=== PATIENT | male | born 1950 | race Caucasian/White ===

== ENCOUNTER 2024-05-23 21:03 | Inpatient (IN) | payer MEDICARE, MEDICAID ==
[~2024-05-23] VITALS: Ht 182.9 cm; Wt 57.2 kg
[2024-05-23 21:34] LABS: BASOPHILS % (AUTO) 0.9 % (0-1); EOSINOPHILS % (AUTO) 0.7 % (0-6); HEMATOCRIT 31.3 % (42.0-52.0); HEMOGLOBIN 10.5 g/dl (14.0-17.9); LYMPHOCYTES # (AUTO) 0.3 X10'3 (1.1-4.8); LYMPHOCYTES % (AUTO) 7.8 % (21-51); MEAN CORPUSCULAR HEMOGLOBIN 33.7 PG (27.0-31.0); MEAN CORPUSCULAR HGB CONC 33.4 g/dL (33.0-36.5); MEAN CORPUSCULAR VOLUME 100.8 FL (78-98); MEAN PLATELET VOLUME 7.3 FL (7.4-10.4); MONOCYTES # (AUTO) 0.3 X10'3 (0-0.9); MONOCYTES % (AUTO) 7.9 % (2-12); NEUTROPHILS # (AUTO) 3.4 X10'3 (1.8-7.7); NEUTROPHILS % (AUTO) 82.7 % (42-75); PLATELET COUNT 107 X10'3 (140-440); RED BLOOD COUNT 3.11 X10'6 (4.70-6.10); RED CELL DISTRIBUTION WIDTH 19.4 % (11.5-14.5); WHITE BLOOD COUNT 4.1 X10'3 (4.5-11.0)
[2024-05-23 21:47] LABS: ALANINE AMINOTRANSFERASE 19 U/L (12-78); ALBUMIN 3.1 G/DL (3.4-5.0); ALBUMIN/GLOBULIN RATIO 0.8 (1.1-1.5); ALKALINE PHOSPHATASE 82 IU/L (46-116); ANION GAP 8 (8-16); BLOOD UREA NITROGEN 9 MG/DL (7-18); BUN/CREATININE RATIO 12.9 (10.0-20.0); CALCIUM 8.3 MG/DL (8.5-10.1); CHLORIDE 100 MMOL/L (99-107); GLUCOSE 116 MG/DL (70-104); SODIUM 134 MMOL/L (135-145); TOTAL CARBON DIOXIDE 26.3 MMOL/L (24-32); TOTAL PROTEIN 6.9 G/DL (6.4-8.2); eCRCL 74 ML/MIN; eGFR > 90 ML/MIN
[2024-05-23 21:56] LABS: ANISOCYTOSIS 1+; PRO BRAIN NATRIURETIC PEPTIDE 960 PG/ML (0-125)
[2024-05-23 22:02] LABS: ASPARTATE AMINO TRANSFERASE 86 U/L (10-37); POTASSIUM 4.3 MMOL/L (3.5-5.1)
[2024-05-24] VITALS (12 sets, daily range): BP systolic 80–121; BP diastolic 53–69; PULSE 20–125; RESP 14–71; TEMP 98.1–98.7; O2SAT 94–100
[2024-05-24] MEDS: azithromycin/NS 500mg/250ml 250 ML IV ONE (00:17)
[2024-05-24] MEDS: CefTRIAXone/D5W-Rocephin 1gm 50 ML IV ONE (00:17)
[2024-05-24] MEDS ORDERED: iohexol 350MG/ML 100ml bottle IV ONE (00:43)
[2024-05-24] MEDS ORDERED: potassium Cl 20 mEq SR tablet PO PRN ×2 (00:55)
[2024-05-24] MEDS ORDERED: potassium Cl 40MEQ/1/2NS 520ml 520 ML IV PRN (00:55)
[2024-05-24] MEDS ORDERED: mag hydrox/Alum hydrox/simeth 30ml oral suspension PO PRN (00:55)
[2024-05-24] MEDS ORDERED: acetaminophen 325mg tablet PO PRN (00:55)
[2024-05-24] MEDS ORDERED: magnesium sulf-water 2g/50mL 50 ML IV PRN (00:55)
[2024-05-24] MEDS ORDERED: morphine 2 MG/ML inj. syringe IV PRN (00:55)
[2024-05-24] MEDS ORDERED: magnesium sulf-water 4G/100mL 100 ML IV PRN (00:55)
[2024-05-24] MEDS ORDERED: magnesium Cl slow-release 64mg tablet PO PRN (00:55)
[2024-05-24] MEDS: furosemide 10 MG/1 ML 10ml inj IV ONE (01:27)
[2024-05-24] MEDS ORDERED: GABA-535 PO (01:35)
[2024-05-24 02:24] LABS: BASOPHILS % (AUTO) 0.7 % (0-1); EOSINOPHILS % (AUTO) 0.6 % (0-6); HEMATOCRIT 31.5 % (42.0-52.0); HEMOGLOBIN 10.5 g/dl (14.0-17.9); LYMPHOCYTES # (AUTO) 0.3 X10'3 (1.1-4.8); LYMPHOCYTES % (AUTO) 6.6 % (21-51); MEAN CORPUSCULAR HEMOGLOBIN 33.6 PG (27.0-31.0); MEAN CORPUSCULAR HGB CONC 33.3 g/dL (33.0-36.5); MEAN PLATELET VOLUME 6.6 FL (7.4-10.4); MONOCYTES # (AUTO) 0.3 X10'3 (0-0.9); MONOCYTES % (AUTO) 8.2 % (2-12); NEUTROPHILS # (AUTO) 3.4 X10'3 (1.8-7.7); NEUTROPHILS % (AUTO) 83.9 % (42-75); PLATELET COUNT 92 X10'3 (140-440); RED BLOOD COUNT 3.12 X10'6 (4.70-6.10); RED CELL DISTRIBUTION WIDTH 19.4 % (11.5-14.5); WHITE BLOOD COUNT 4.1 X10'3 (4.5-11.0)
[2024-05-24 02:33] LABS: BILIRUBIN,URINE NEGATIVE (Neg); CLARITY,URINE CLEAR (Clear); COLOR,URINE YELLOW (Yellow); GLUCOSE, URINE NEGATIVE (Neg); KETONES,URINE NEGATIVE (Neg); LEUKOCYTE ESTERASE ,URINE NEGATIVE (Neg); NITRITES, URINE NEGATIVE (Neg); OCCULT BLOOD,URINE NEGATIVE (Neg); PH,URINE 6.5 (4.8-8.0); PROTEIN,URINE NEGATIVE (Neg)
[2024-05-24 02:33] LABS: MAGNESIUM 1.9 MG/DL (1.5-2.4)
[2024-05-24 02:35] LABS: UA COLLECTION TYPE CLN CATCH MIDSTREAM
[2024-05-24] MEDS: pantoprazole 40 MG vial IV ONE (02:40)
[2024-05-24] MEDS: ondansetron/PF 4mg/2ml inj IV PRN (02:42)
[2024-05-24] MEDS: ipratropium/albuterol 3ml nebule NEB SCH (03:00)
[2024-05-24 03:19] LABS: ABSOLUTE RETICS # 70300 /CUMM (23000-93000); RETICULOCYTE % (AUTO) 2.3 % (0.5-1.5)
[2024-05-24 03:43] LABS: ETHANOL < 10 MG/DL (<10); FERRITIN 537 NG/ML (26-388)
[2024-05-24 03:45] LABS: % IRON SATURATION 21 % (11-46); IRON 41 UG/DL (53-167); TOTAL IRON BINDING CAPACITY 197 UG/DL (259-388)
[2024-05-24] MEDS: folic acid 1mg/0.2ml inj IV ONE (04:50)
[2024-05-24] MEDS: morphine 2 MG/ML inj. syringe IV PRN (05:11)
[2024-05-24] MEDS: K and/or MAG REPLACEMENT MC SCH (07:27)
[2024-05-24] MEDS: cyanocobalamin 500mcg tablet PO SCH (07:37)
[2024-05-24] MEDS: gabapentin 400mg capsule PO SCH (07:37)
[2024-05-24] MEDS: docusate sod 100mg capsule PO SCH (07:39)
[2024-05-24] MEDS: piperacillin/tazo 4.5gm/100ml 100 ML IV SCH (07:39)
[2024-05-24] MEDS ORDERED: heparin, porcine 5000 units/ml vial SQ SCH (08:00)
[2024-05-24] MEDS: lactose-reduced food (Ensure Enlive) - 237ml bottle PO SCH (08:00)
[2024-05-24 11:47] LABS: GLUCOSE,BODY FLUID 104 MG/DL; LDH,BODY FLUID 104 U/L; TOTAL PROTEIN,BODY FLUID 4.3 G/DL
[2024-05-24 11:51] LABS: BFSOURCE RIGHT PLEURAL FLD; PLEURAL FLUID PH 7.454 (7.63-7.65)
[2024-05-24 12:01] LABS: BFAPPEAR HAZY; BFSOURCE RIGHT PLEURAL FLD
[2024-05-24 12:02] LABS: BF RBC COUNT 3080 /CU MM; BF WBC COUNT 205 /CU MM (0-1000); BFCOLOR YELLOW; BFVOLUME 40 ML
[2024-05-24 12:03] LABS: LYMPHOCYTES,BODY FLUID 58 %; MONOCYTES,BODY FLUID 26 %; NEUTROPHILS,BODY FLUID 16 %
[2024-05-24 12:04] LABS: BF MESOTHELIAL CELLS FEW
[2024-05-24] MEDS: normal saline 1000ml 1,000 ML IV SCH (21:56)
[2024-05-25] VITALS (27 sets, daily range): BP systolic 80–109; BP diastolic 49–61; PULSE 82–109; RESP 14–20; TEMP 97.6–98.6; O2SAT 94–100
[2024-05-25] MEDS: Melatonin 3mg tablet PO SCH (00:46)
[2024-05-25 07:09] LABS: BASOPHILS % (AUTO) 0.8 % (0-1); EOSINOPHILS % (AUTO) 0.4 % (0-6); HEMATOCRIT 23.1 % (42.0-52.0); HEMOGLOBIN 7.8 g/dl (14.0-17.9); LYMPHOCYTES # (AUTO) 0.2 X10'3 (1.1-4.8); MEAN CORPUSCULAR HEMOGLOBIN 34.2 PG (27.0-31.0); MEAN CORPUSCULAR HGB CONC 33.9 g/dL (33.0-36.5); MEAN CORPUSCULAR VOLUME 100.7 FL (78-98); MONOCYTES # (AUTO) 0.2 X10'3 (0-0.9); MONOCYTES % (AUTO) 8.7 % (2-12); NEUTROPHILS % (AUTO) 82.1 % (42-75); PLATELET COUNT 60 X10'3 (140-440); RED BLOOD COUNT 2.29 X10'6 (4.70-6.10); RED CELL DISTRIBUTION WIDTH 19.4 % (11.5-14.5); WHITE BLOOD COUNT 2.5 X10'3 (4.5-11.0)
[2024-05-25 07:13] LABS: INR 1.1 INR; PROTHROMBIN TIME 11.4 SECONDS (9.0-12.0)
[2024-05-25 07:33] LABS: ALANINE AMINOTRANSFERASE 17 U/L (12-78); ALBUMIN 2.6 G/DL (3.4-5.0); ALBUMIN/GLOBULIN RATIO 0.8 (1.1-1.5); ALKALINE PHOSPHATASE 60 IU/L (46-116); ANION GAP 6 (8-16); ASPARTATE AMINO TRANSFERASE 58 U/L (10-37); BILIRUBIN,TOTAL 0.5 MG/DL (0.1-1.0); BLOOD UREA NITROGEN 13 MG/DL (7-18); CALCIUM 7.8 MG/DL (8.5-10.1); CHLORIDE 102 MMOL/L (99-107); CHOL/HDL RATIO 4.3 (0.00-4.99); CHOLESTEROL 168 MG/DL (0-200); CREATININE 0.93 MG/DL (0.60-1.10); GLUCOSE 117 MG/DL (70-104); HDL CHOLESTEROL 39 MG/DL (35-60); LDL CHOLESTEROL 113 MG/DL (50-100); MAGNESIUM 1.8 MG/DL (1.5-2.4); POTASSIUM 3.9 MMOL/L (3.5-5.1); SODIUM 136 MMOL/L (135-145); TOTAL CARBON DIOXIDE 27.9 MMOL/L (24-32); TOTAL PROTEIN 5.8 G/DL (6.4-8.2); TRIGLYCERIDES 62 MG/DL (20-135); eCRCL 56 ML/MIN; eGFR 80 ML/MIN
[2024-05-25 08:37] LABS: HEMOGLOBIN 7.8 g/dl (14.0-17.9); WHITE BLOOD COUNT 2.3 X10'3 (4.5-11.0)
[2024-05-25 08:40] LABS: HEMATOCRIT 23.2 % (42.0-52.0); MEAN CORPUSCULAR HEMOGLOBIN 33.5 PG (27.0-31.0); MEAN CORPUSCULAR HGB CONC 33.5 g/dL (33.0-36.5); MEAN CORPUSCULAR VOLUME 100.2 FL (78-98); MEAN PLATELET VOLUME 6.5 FL (7.4-10.4); PLATELET COUNT 52 X10'3 (140-440); RED BLOOD COUNT 2.31 X10'6 (4.70-6.10); RED CELL DISTRIBUTION WIDTH 19.4 % (11.5-14.5)
[2024-05-25 08:55] LABS: TOTAL CELLS COUNTED 100
[2024-05-25 08:56] LABS: ANISOCYTOSIS 2+; PLATELET ESTIMATE DECREASED
[2024-05-25] MEDS ORDERED: LIDOcaine 2% Viscous 15ml cup ONE (16:03)
[2024-05-25] MEDS ORDERED: fentaNYL/PF 50MCG/1 ML 2ML syringe ONE (16:28)
[2024-05-25] MEDS ORDERED: MIDAZolam 1 MG/ML 5ML VIAL ONE (16:28)
[2024-05-25] MEDS ORDERED: simethicone 40mg/0.6ml oral drops 30ml ONE (16:30)
[2024-05-25] MEDS ORDERED: PSYL0.4C2 PO (16:43)
[2024-05-25] MEDS ORDERED: polyvinyl alcohol eye drops 15ML BOTTLE EACHEYE PRN (16:55)
[2024-05-25] MEDS ORDERED: psyllium seed 5.8 gm packet (sugar-free) PO PRN (18:50)
[2024-05-25] MEDS: magnesium hydroxide 30ml (MOM) UD suspension PO PRN (19:20)
[2024-05-26] VITALS (27 sets, daily range): BP systolic 82–126; BP diastolic 50–74; PULSE 96–118; RESP 14–22; TEMP 97.1–99.3; O2SAT 86–99
[2024-05-26] MEDS: gabapentin 400mg capsule PO SCH (00:08)
[2024-05-26 05:38] LABS: BASOPHILS % (AUTO) 0.8 % (0-1); EOSINOPHILS % (AUTO) 0.7 % (0-6); HEMOGLOBIN 7.7 g/dl (14.0-17.9); LYMPHOCYTES # (AUTO) 0.2 X10'3 (1.1-4.8); LYMPHOCYTES % (AUTO) 6.8 % (21-51); MEAN CORPUSCULAR HEMOGLOBIN 34.1 PG (27.0-31.0); MEAN CORPUSCULAR HGB CONC 33.6 g/dL (33.0-36.5); MEAN CORPUSCULAR VOLUME 101.5 FL (78-98); MONOCYTES # (AUTO) 0.2 X10'3 (0-0.9); MONOCYTES % (AUTO) 8.6 % (2-12); NEUTROPHILS # (AUTO) 1.9 X10'3 (1.8-7.7); NEUTROPHILS % (AUTO) 83.1 % (42-75); PLATELET COUNT 51 X10'3 (140-440); RED BLOOD COUNT 2.26 X10'6 (4.70-6.10); RED CELL DISTRIBUTION WIDTH 18.8 % (11.5-14.5); WHITE BLOOD COUNT 2.3 X10'3 (4.5-11.0)
[2024-05-26 06:03] LABS: ALANINE AMINOTRANSFERASE 17 U/L (12-78); ALBUMIN 2.4 G/DL (3.4-5.0); ALBUMIN/GLOBULIN RATIO 0.8 (1.1-1.5); ALKALINE PHOSPHATASE 55 IU/L (46-116); ANION GAP 7 (8-16); ASPARTATE AMINO TRANSFERASE 58 U/L (10-37); BILIRUBIN,TOTAL 0.6 MG/DL (0.1-1.0); BLOOD UREA NITROGEN 8 MG/DL (7-18); BUN/CREATININE RATIO 11.6 (10.0-20.0); CALCIUM 7.7 MG/DL (8.5-10.1); CHLORIDE 105 MMOL/L (99-107); CREATININE 0.69 MG/DL (0.60-1.10); GLUCOSE 96 MG/DL (70-104); MAGNESIUM 2.1 MG/DL (1.5-2.4); POTASSIUM 3.9 MMOL/L (3.5-5.1); SODIUM 138 MMOL/L (135-145); TOTAL CARBON DIOXIDE 26.3 MMOL/L (24-32); TOTAL PROTEIN 5.5 G/DL (6.4-8.2); eCRCL 73 ML/MIN; eGFR > 90 ML/MIN
[2024-05-26 06:49] LABS: ANISOCYTOSIS 2+; PLATELET ESTIMATE DECREASED; TOTAL CELLS COUNTED 100
[2024-05-26 06:50] LABS: TEAR DROP CELLS FEW
[2024-05-26 06:51] LABS: STOMATOCYTES FEW
[2024-05-26 14:54] LABS: HEMATOCRIT 26.8 % (42.0-52.0); MEAN CORPUSCULAR HEMOGLOBIN 33.4 PG (27.0-31.0); MEAN CORPUSCULAR HGB CONC 33.6 g/dL (33.0-36.5); MEAN CORPUSCULAR VOLUME 99.2 FL (78-98); MEAN PLATELET VOLUME 6.5 FL (7.4-10.4); PLATELET COUNT 60 X10'3 (140-440); RED CELL DISTRIBUTION WIDTH 19.7 % (11.5-14.5); WHITE BLOOD COUNT 3.6 X10'3 (4.5-11.0)
[2024-05-27] VITALS (15 sets, daily range): BP systolic 96–108; BP diastolic 63–70; PULSE 88–103; RESP 14–18; TEMP 97.6–98.5; O2SAT 92–98
[2024-05-27 05:39] LABS: EOSINOPHILS % (AUTO) 1.3 % (0-6); HEMATOCRIT 31.7 % (42.0-52.0); HEMOGLOBIN 10.7 g/dl (14.0-17.9); LYMPHOCYTES # (AUTO) 0.2 X10'3 (1.1-4.8); MEAN CORPUSCULAR HGB CONC 33.7 g/dL (33.0-36.5); MEAN PLATELET VOLUME 7.4 FL (7.4-10.4); MONOCYTES # (AUTO) 0.2 X10'3 (0-0.9)
[2024-05-27 05:41] LABS: BASOPHILS % (AUTO) 0.8 % (0-1); LYMPHOCYTES % (AUTO) 6.6 % (21-51); MEAN CORPUSCULAR HEMOGLOBIN 32.3 PG (27.0-31.0); MEAN CORPUSCULAR VOLUME 95.8 FL (78-98); MONOCYTES % (AUTO) 6.3 % (2-12); NEUTROPHILS # (AUTO) 2.7 X10'3 (1.8-7.7); PLATELET COUNT 56 X10'3 (140-440); WHITE BLOOD COUNT 3.2 X10'3 (4.5-11.0)
[2024-05-27 05:58] LABS: ALANINE AMINOTRANSFERASE 13 U/L (12-78); ALBUMIN 2.4 G/DL (3.4-5.0); ALBUMIN/GLOBULIN RATIO 0.7 (1.1-1.5); ALKALINE PHOSPHATASE 63 IU/L (46-116); ANION GAP 7 (8-16); ASPARTATE AMINO TRANSFERASE 54 U/L (10-37); BLOOD UREA NITROGEN 6 MG/DL (7-18); BUN/CREATININE RATIO 9.5 (10.0-20.0); CHLORIDE 105 MMOL/L (99-107); CREATININE 0.63 MG/DL (0.60-1.10); GLUCOSE 102 MG/DL (70-104); POTASSIUM 4.1 MMOL/L (3.5-5.1); SODIUM 136 MMOL/L (135-145); TOTAL CARBON DIOXIDE 24.3 MMOL/L (24-32); TOTAL PROTEIN 5.9 G/DL (6.4-8.2); eCRCL 80 ML/MIN; eGFR > 90 ML/MIN
[2024-05-27 13:39] LABS: OCCULT BLOOD STOOL POSITIVE (Neg)
[2024-05-28] VITALS (14 sets, daily range): BP systolic 109–120; BP diastolic 46–89; PULSE 74–96; RESP 16–24; TEMP 97.6–98; O2SAT 94–98
[2024-05-28 05:40] LABS: EOSINOPHILS # (AUTO) 0.1 X10'3 (0-0.9); HEMOGLOBIN 10.9 g/dl (14.0-17.9); LYMPHOCYTES # (AUTO) 0.2 X10'3 (1.1-4.8); MONOCYTES # (AUTO) 0.3 X10'3 (0-0.9)
[2024-05-28 05:42] LABS: BASOPHILS % (AUTO) 0.8 % (0-1); EOSINOPHILS % (AUTO) 1.5 % (0-6); HEMATOCRIT 32.1 % (42.0-52.0); LYMPHOCYTES % (AUTO) 5.3 % (21-51); MEAN CORPUSCULAR HEMOGLOBIN 32.7 PG (27.0-31.0); MEAN CORPUSCULAR HGB CONC 33.8 g/dL (33.0-36.5); MEAN CORPUSCULAR VOLUME 96.9 FL (78-98); MEAN PLATELET VOLUME 7.3 FL (7.4-10.4); MONOCYTES % (AUTO) 6.7 % (2-12); NEUTROPHILS # (AUTO) 3.6 X10'3 (1.8-7.7); NEUTROPHILS % (AUTO) 85.7 % (42-75); PLATELET COUNT 60 X10'3 (140-440); RED BLOOD COUNT 3.32 X10'6 (4.70-6.10); RED CELL DISTRIBUTION WIDTH 20.2 % (11.5-14.5); WHITE BLOOD COUNT 4.2 X10'3 (4.5-11.0)
[2024-05-28 06:14] LABS: ALANINE AMINOTRANSFERASE 13 U/L (12-78); ALBUMIN 2.3 G/DL (3.4-5.0); ALBUMIN/GLOBULIN RATIO 0.7 (1.1-1.5); ALKALINE PHOSPHATASE 65 IU/L (46-116); ANION GAP 7 (8-16); ASPARTATE AMINO TRANSFERASE 49 U/L (10-37); BILIRUBIN,TOTAL 0.8 MG/DL (0.1-1.0); BLOOD UREA NITROGEN 6 MG/DL (7-18); BUN/CREATININE RATIO 8.7 (10.0-20.0); CHLORIDE 105 MMOL/L (99-107); CREATININE 0.69 MG/DL (0.60-1.10); GLUCOSE 83 MG/DL (70-104); MAGNESIUM 1.9 MG/DL (1.5-2.4); POTASSIUM 4.5 MMOL/L (3.5-5.1); SODIUM 137 MMOL/L (135-145); TOTAL CARBON DIOXIDE 25.4 MMOL/L (24-32); TOTAL PROTEIN 5.7 G/DL (6.4-8.2); eCRCL 74 ML/MIN; eGFR > 90 ML/MIN
[2024-05-29] VITALS (33 sets, daily range): BP systolic 115–145; BP diastolic 69–97; PULSE 84–119; RESP 14–24; TEMP 97.5–98.1; O2SAT 94–100
[2024-05-29 06:52] LABS: EOSINOPHILS # (AUTO) 0.1 X10'3 (0-0.9); EOSINOPHILS % (AUTO) 1.2 % (0-6); HEMOGLOBIN 10.8 g/dl (14.0-17.9); LYMPHOCYTES # (AUTO) 0.2 X10'3 (1.1-4.8); MEAN CORPUSCULAR HEMOGLOBIN 32.3 PG (27.0-31.0); NEUTROPHILS # (AUTO) 3.8 X10'3 (1.8-7.7); RED BLOOD COUNT 3.34 X10'6 (4.70-6.10)
[2024-05-29 06:54] LABS: BASOPHILS % (AUTO) 0.5 % (0-1); HEMATOCRIT 32.3 % (42.0-52.0); LYMPHOCYTES % (AUTO) 3.5 % (21-51); MEAN CORPUSCULAR HGB CONC 33.4 g/dL (33.0-36.5); MEAN CORPUSCULAR VOLUME 96.6 FL (78-98); MEAN PLATELET VOLUME 7.3 FL (7.4-10.4); MONOCYTES # (AUTO) 0.3 X10'3 (0-0.9); MONOCYTES % (AUTO) 6.5 % (2-12); NEUTROPHILS % (AUTO) 88.3 % (42-75); PLATELET COUNT 55 X10'3 (140-440); RED CELL DISTRIBUTION WIDTH 19.5 % (11.5-14.5); WHITE BLOOD COUNT 4.3 X10'3 (4.5-11.0)
[2024-05-29 07:24] LABS: ALANINE AMINOTRANSFERASE 12 U/L (12-78); ALBUMIN 2.4 G/DL (3.4-5.0); ALBUMIN/GLOBULIN RATIO 0.7 (1.1-1.5); ALKALINE PHOSPHATASE 65 IU/L (46-116); ANION GAP 7 (8-16); ASPARTATE AMINO TRANSFERASE 54 U/L (10-37); BILIRUBIN,TOTAL 0.8 MG/DL (0.1-1.0); BLOOD UREA NITROGEN 6 MG/DL (7-18); BUN/CREATININE RATIO 8.1 (10.0-20.0); CALCIUM 7.9 MG/DL (8.5-10.1); CHLORIDE 104 MMOL/L (99-107); CREATININE 0.74 MG/DL (0.60-1.10); GLUCOSE 81 MG/DL (70-104); POTASSIUM 4.1 MMOL/L (3.5-5.1); SODIUM 136 MMOL/L (135-145); TOTAL CARBON DIOXIDE 24.7 MMOL/L (24-32); TOTAL PROTEIN 5.9 G/DL (6.4-8.2); eCRCL 72 ML/MIN; eGFR > 90 ML/MIN
[2024-05-29] MEDS ORDERED: LIDOcaine/PRILOcaine 5gm cream TP PRN (11:35)
[2024-05-29] MEDS ORDERED: BUPIVAcaine 2.5mg/ml inj 50ml vial (contains preservative) ONE (15:37)
[2024-05-29] MEDS ORDERED: morphine 2 MG/ML inj. syringe IV PRN (16:00)
[2024-05-29] MEDS ORDERED: HYDROmorphone/PF 0.2 MG/ML SYRINGE IV PRN (16:00)
[2024-05-29] MEDS ORDERED: labetalol 20mg/4ml (5mg/ml) syringe IV PRN (16:00)
[2024-05-29] MEDS: ringers solution, lacted 1,000 ML IV SCH (16:00)
[2024-05-29] MEDS ORDERED: morphine 4 MG/ML inj SYRINge IV PRN (16:00)
[2024-05-29] MEDS ORDERED: ondansetron/PF 4mg/2ml inj IV PRN (16:00)
[2024-05-29] MEDS ORDERED: fentaNYL/PF 50MCG/1 ML 2ML syringe ONE (16:02)
[2024-05-29] MEDS ORDERED: midazolam 1 mg/ML 2ml injection ONE (16:02)
[2024-05-29] MEDS ORDERED: sevoflurane 250ml liquid IH ONE (16:02)
[2024-05-29] MEDS ORDERED: propofol inj 20 ML IV ONE (16:02)
[2024-05-29] MEDS ORDERED: rocuronium 10mg/ml inj IV ONE (16:02)
[2024-05-29] MEDS ORDERED: albumin (Human) 5% 250ml 250 ML IV ONE (16:45)
[2024-05-29] MEDS ORDERED: dexamethasone sod phosphate 4mg/ml inj. ONE (16:48)
[2024-05-29] MEDS: BUPIVAcaine/PF 2.5 mg/ml (0.25%) 30ml vial IJ ONE (17:08)
[2024-05-29] MEDS ORDERED: ondansetron/PF 4mg/2ml inj ONE (17:30)
[2024-05-29] MEDS ORDERED: sugammadex 200mg/2ml injection IV ONE (17:31)
[2024-05-29] MEDS ORDERED: HYDROcodone/acetaminophen 10/325mg tab PO PRN (17:50)
[2024-05-29] MEDS: acetaminophen 1,000mg/100ml IV 100 ML IV PRN (18:07)
[2024-05-29] MEDS: HYDROmorphone/PF 0.2 MG/ML SYRINGE IV PRN (22:11)
[2024-05-30] VITALS (17 sets, daily range): BP systolic 116–155; BP diastolic 78–97; PULSE 94–120; RESP 13–18; TEMP 97.6–98.4; O2SAT 92–96
[2024-05-30] MEDS: HYDROmorphone inj. 0.5 MG/0.5 ML DISP.SYRIN IV ONE (00:59)
[2024-05-30] MEDS: HYDROmorphone 1 mg/ml syringe IV PRN (09:20)
[2024-05-31] VITALS (12 sets, daily range): BP systolic 105–123; BP diastolic 68–80; PULSE 91–138; RESP 13–18; TEMP 97.6–98.1; O2SAT 95–99
[2024-05-31 06:53] LABS: BASOPHILS % (AUTO) 0.3 % (0-1); HEMATOCRIT 31.3 % (42.0-52.0); HEMOGLOBIN 10.5 g/dl (14.0-17.9); LYMPHOCYTES # (AUTO) 0.2 X10'3 (1.1-4.8); LYMPHOCYTES % (AUTO) 4.8 % (21-51); MEAN CORPUSCULAR HEMOGLOBIN 32.8 PG (27.0-31.0); MEAN CORPUSCULAR HGB CONC 33.6 g/dL (33.0-36.5); MEAN CORPUSCULAR VOLUME 97.5 FL (78-98); MEAN PLATELET VOLUME 7.1 FL (7.4-10.4); MONOCYTES # (AUTO) 0.3 X10'3 (0-0.9); MONOCYTES % (AUTO) 6.7 % (2-12); NEUTROPHILS # (AUTO) 3.9 X10'3 (1.8-7.7); NEUTROPHILS % (AUTO) 87.2 % (42-75); PLATELET COUNT 57 X10'3 (140-440); RED BLOOD COUNT 3.21 X10'6 (4.70-6.10); RED CELL DISTRIBUTION WIDTH 19.9 % (11.5-14.5); WHITE BLOOD COUNT 4.5 X10'3 (4.5-11.0)
[2024-05-31 07:46] LABS: ALANINE AMINOTRANSFERASE 12 U/L (12-78); ALBUMIN 2.3 G/DL (3.4-5.0); ALBUMIN/GLOBULIN RATIO 0.7 (1.1-1.5); ALKALINE PHOSPHATASE 58 IU/L (46-116); ANION GAP 6 (8-16); ASPARTATE AMINO TRANSFERASE 49 U/L (10-37); BILIRUBIN,TOTAL 0.5 MG/DL (0.1-1.0); BLOOD UREA NITROGEN 9 MG/DL (7-18); BUN/CREATININE RATIO 14.8 (10.0-20.0); CHLORIDE 104 MMOL/L (99-107); CREATININE 0.61 MG/DL (0.60-1.10); GLUCOSE 110 MG/DL (70-104); POTASSIUM 3.8 MMOL/L (3.5-5.1); SODIUM 135 MMOL/L (135-145); TOTAL CARBON DIOXIDE 25.3 MMOL/L (24-32); TOTAL PROTEIN 5.7 G/DL (6.4-8.2); eCRCL 86 ML/MIN; eGFR > 90 ML/MIN
[2024-05-31] MEDS ORDERED: thiamine 100mg tablet PO SCH (08:00)
[2024-05-31] MEDS ORDERED: acetaminophen 325mg/10.15ml oral unit dose solution PO PRN (09:26)
[2024-05-31] MEDS ORDERED: mag hydrox/Alum hydrox/simeth 30ml oral suspension PEG PRN (09:28)
[2024-05-31] MEDS ORDERED: psyllium seed 5.8 gm packet (sugar-free) PEG PRN (09:29)
[2024-05-31] MEDS ORDERED: acetaminophen 325mg/10.15ml oral unit dose solution PEG PRN (09:29)
[2024-05-31] MEDS ORDERED: magnesium hydroxide 30ml (MOM) UD suspension PEG PRN (09:29)
[2024-05-31] MEDS: bisacodyl 10mg suppository rectal RC STA (10:56)
[2024-05-31] MEDS ORDERED: bisacodyl 10mg suppository rectal RC PRN (11:00)
[2024-05-31] MEDS ORDERED: ondansetron 4mg rapidly disintigrating tab PO PRN (11:30)
[2024-05-31] MEDS: docusate sodium 100mg/10ml UD cup PEG ONE (11:44)
[2024-05-31] MEDS: cyanocobalamin 500mcg tablet PEG ONE (11:45)
[2024-05-31] MEDS: thiamine 100mg tablet PEG ONE (11:46)
[2024-05-31] MEDS: magnesium hydroxide 30ml (MOM) UD suspension GT PRN (11:52)
[2024-05-31] MEDS: docusate sodium 100mg/10ml UD cup PEG SCH (20:00)
[2024-05-31] MEDS: GABAPENTIN 300 MG/6 ML oral SOLUTION cup PEG SCH (21:00)
[2024-05-31] MEDS: psyllium seed 5.8 gm packet (sugar-free) PEG SCH (21:44)
[2024-05-31] MEDS: Melatonin 3mg tablet PEG SCH (21:44)
[2024-06-01] VITALS (15 sets, daily range): BP systolic 98–124; BP diastolic 60–79; PULSE 63–101; RESP 16–20; TEMP 97.6–98.7; O2SAT 93–97
[2024-06-01] MEDS: ipratropium/albuterol 3ml nebule NEB PRN (03:47)
[2024-06-01 06:37] LABS: BASOPHILS % (AUTO) 0.4 % (0-1); EOSINOPHILS # (AUTO) 0.1 X10'3 (0-0.9); HEMATOCRIT 31.9 % (42.0-52.0); HEMOGLOBIN 10.7 g/dl (14.0-17.9); LYMPHOCYTES # (AUTO) 0.3 X10'3 (1.1-4.8); LYMPHOCYTES % (AUTO) 5.2 % (21-51); MEAN CORPUSCULAR HEMOGLOBIN 32.6 PG (27.0-31.0); MEAN CORPUSCULAR HGB CONC 33.7 g/dL (33.0-36.5); MEAN CORPUSCULAR VOLUME 96.9 FL (78-98); MEAN PLATELET VOLUME 7.3 FL (7.4-10.4); MONOCYTES # (AUTO) 0.4 X10'3 (0-0.9); MONOCYTES % (AUTO) 7.4 % (2-12); NEUTROPHILS # (AUTO) 4.4 X10'3 (1.8-7.7); PLATELET COUNT 68 X10'3 (140-440); RED BLOOD COUNT 3.29 X10'6 (4.70-6.10); RED CELL DISTRIBUTION WIDTH 19.7 % (11.5-14.5); WHITE BLOOD COUNT 5.2 X10'3 (4.5-11.0)
[2024-06-01 07:15] LABS: ALANINE AMINOTRANSFERASE 16 U/L (12-78); ALBUMIN 2.1 G/DL (3.4-5.0); ALBUMIN/GLOBULIN RATIO 0.6 (1.1-1.5); ALKALINE PHOSPHATASE 71 IU/L (46-116); ANION GAP 5 (8-16); ASPARTATE AMINO TRANSFERASE 48 U/L (10-37); BILIRUBIN,TOTAL 0.5 MG/DL (0.1-1.0); BLOOD UREA NITROGEN 17 MG/DL (7-18); BUN/CREATININE RATIO 23.9 (10.0-20.0); CALCIUM 7.9 MG/DL (8.5-10.1); CHLORIDE 103 MMOL/L (99-107); CREATININE 0.71 MG/DL (0.60-1.10); GLUCOSE 117 MG/DL (70-104); POTASSIUM 4.4 MMOL/L (3.5-5.1); PREALBUMIN 12.6 MG/DL (19-36); SODIUM 136 MMOL/L (135-145); TOTAL CARBON DIOXIDE 28.2 MMOL/L (24-32); TOTAL PROTEIN 5.7 G/DL (6.4-8.2); eCRCL 74 ML/MIN; eGFR > 90 ML/MIN
[2024-06-01] MEDS: cyanocobalamin 500mcg tablet PEG SCH (08:20)
[2024-06-01] MEDS: thiamine 100mg tablet PEG SCH (08:20)
[2024-06-01] MEDS: HYDROmorphone inj. 0.5 MG/0.5 ML DISP.SYRIN IV PRN (08:33)
[2024-06-01] MEDS ORDERED: acetaminophen 325mg/10.15ml oral unit dose solution GT PRN (13:54)
[2024-06-01] MEDS ORDERED: mag hydrox/Alum hydrox/simeth 30ml oral suspension GT PRN (13:55)
[2024-06-01] MEDS ORDERED: ondansetron 4mg/5ml UD cup GT PRN (14:00)
[2024-06-01] MEDS: docusate sodium 100mg/10ml UD cup GT SCH (20:00)
[2024-06-01] MEDS: Melatonin 3mg tablet GT SCH (20:37)
[2024-06-01] MEDS: GABAPENTIN 300 MG/6 ML oral SOLUTION cup GT SCH (21:00)
[2024-06-02] VITALS (10 sets, daily range): BP systolic 110–125; BP diastolic 63–81; PULSE 81–107; RESP 16–20; TEMP 97.4–98.9; O2SAT 94–100
[2024-06-02 05:55] LABS: BASOPHILS % (AUTO) 0.7 % (0-1); EOSINOPHILS # (AUTO) 0.1 X10'3 (0-0.9); EOSINOPHILS % (AUTO) 2.2 % (0-6); HEMATOCRIT 34.4 % (42.0-52.0); HEMOGLOBIN 11.4 g/dl (14.0-17.9); LYMPHOCYTES # (AUTO) 0.5 X10'3 (1.1-4.8); LYMPHOCYTES % (AUTO) 9.4 % (21-51); MEAN CORPUSCULAR HEMOGLOBIN 32.2 PG (27.0-31.0); MEAN CORPUSCULAR HGB CONC 33.1 g/dL (33.0-36.5); MEAN CORPUSCULAR VOLUME 97.5 FL (78-98); MEAN PLATELET VOLUME 7.3 FL (7.4-10.4); MONOCYTES # (AUTO) 0.4 X10'3 (0-0.9); MONOCYTES % (AUTO) 6.3 % (2-12); NEUTROPHILS # (AUTO) 4.5 X10'3 (1.8-7.7); NEUTROPHILS % (AUTO) 81.4 % (42-75); PLATELET COUNT 95 X10'3 (140-440); RED BLOOD COUNT 3.52 X10'6 (4.70-6.10); RED CELL DISTRIBUTION WIDTH 19.9 % (11.5-14.5); WHITE BLOOD COUNT 5.6 X10'3 (4.5-11.0)
[2024-06-02 06:18] LABS: ALANINE AMINOTRANSFERASE 15 U/L (12-78); ALBUMIN 2.2 G/DL (3.4-5.0); ALBUMIN/GLOBULIN RATIO 0.6 (1.1-1.5); ALKALINE PHOSPHATASE 72 IU/L (46-116); ANION GAP 5 (8-16); ASPARTATE AMINO TRANSFERASE 53 U/L (10-37); BILIRUBIN,TOTAL 0.5 MG/DL (0.1-1.0); BLOOD UREA NITROGEN 19 MG/DL (7-18); BUN/CREATININE RATIO 32.8 (10.0-20.0); CALCIUM 8.3 MG/DL (8.5-10.1); CHLORIDE 102 MMOL/L (99-107); CREATININE 0.58 MG/DL (0.60-1.10); GLUCOSE 87 MG/DL (70-104); POTASSIUM 4.4 MMOL/L (3.5-5.1); SODIUM 135 MMOL/L (135-145); TOTAL CARBON DIOXIDE 28.5 MMOL/L (24-32); TOTAL PROTEIN 5.6 G/DL (6.4-8.2); eCRCL 91 ML/MIN; eGFR > 90 ML/MIN
[2024-06-02 06:28] LABS: ANISOCYTOSIS 2+; ELLIPTOCYTES FEW; PLATELET ESTIMATE DECREASED
[2024-06-03] VITALS (7 sets, daily range): BP systolic 101–121; BP diastolic 60–70; PULSE 85–98; RESP 16–20; TEMP 97.2–98; O2SAT 91–99
[2024-06-03 06:15] LABS: ALANINE AMINOTRANSFERASE 21 U/L (12-78); ALBUMIN 2.1 G/DL (3.4-5.0); ALBUMIN/GLOBULIN RATIO 0.7 (1.1-1.5); ALKALINE PHOSPHATASE 78 IU/L (46-116); ANION GAP 4 (8-16); ASPARTATE AMINO TRANSFERASE 54 U/L (10-37); BILIRUBIN,TOTAL 0.4 MG/DL (0.1-1.0); BLOOD UREA NITROGEN 21 MG/DL (7-18); BUN/CREATININE RATIO 36.8 (10.0-20.0); CALCIUM 8.2 MG/DL (8.5-10.1); CHLORIDE 104 MMOL/L (99-107); CREATININE 0.57 MG/DL (0.60-1.10); GLUCOSE 83 MG/DL (70-104); POTASSIUM 4.4 MMOL/L (3.5-5.1); SODIUM 136 MMOL/L (135-145); TOTAL CARBON DIOXIDE 28.2 MMOL/L (24-32); TOTAL PROTEIN 5.3 G/DL (6.4-8.2); eCRCL 92 ML/MIN; eGFR > 90 ML/MIN
[2024-06-04] VITALS (7 sets, daily range): BP systolic 110–134; BP diastolic 67–77; PULSE 83–96; RESP 14–20; TEMP 97.1–98; O2SAT 98–99
[2024-06-04 06:57] LABS: ALANINE AMINOTRANSFERASE 12 U/L (12-78); ALBUMIN 2.2 G/DL (3.4-5.0); ALBUMIN/GLOBULIN RATIO 0.6 (1.1-1.5); ALKALINE PHOSPHATASE 100 IU/L (46-116); ANION GAP 5 (8-16); ASPARTATE AMINO TRANSFERASE 58 U/L (10-37); BILIRUBIN,TOTAL 0.5 MG/DL (0.1-1.0); BLOOD UREA NITROGEN 18 MG/DL (7-18); CALCIUM 8.3 MG/DL (8.5-10.1); CHLORIDE 103 MMOL/L (99-107); CREATININE 0.53 MG/DL (0.60-1.10); GLUCOSE 95 MG/DL (70-104); POTASSIUM 4.4 MMOL/L (3.5-5.1); SODIUM 136 MMOL/L (135-145); TOTAL CARBON DIOXIDE 28.3 MMOL/L (24-32); TOTAL PROTEIN 5.6 G/DL (6.4-8.2); eCRCL 100 ML/MIN; eGFR > 90 ML/MIN
[2024-06-05 07:00] VITALS: BP 119/71; PULSE 83; RESP 16; TEMP 97.3; O2SAT 94
[2024-06-05 08:00] VITALS: RESP 16; O2SAT 94
[2024-06-05 09:34] VITALS: PULSE 109; RESP 16; O2SAT 95
[2024-06-05 10:00] VITALS: BP 124/79; PULSE 102; RESP 20; TEMP 98; O2SAT 96
[2024-06-05] MEDS ORDERED: ONDA-245 PO (11:30)
[2024-06-05] MEDS ORDERED: METO5SOL22 GT (11:32)
[2024-06-05] MEDS ORDERED: IPRA3AMP9 NEB (11:41)
[2024-06-05 12:27] LABS: BASOPHILS % (AUTO) 0.6 % (0-1); EOSINOPHILS # (AUTO) 0.1 X10'3 (0-0.9); EOSINOPHILS % (AUTO) 0.9 % (0-6); HEMATOCRIT 34.6 % (42.0-52.0); HEMOGLOBIN 11.4 g/dl (14.0-17.9); LYMPHOCYTES # (AUTO) 0.3 X10'3 (1.1-4.8); LYMPHOCYTES % (AUTO) 4.6 % (21-51); MEAN CORPUSCULAR HEMOGLOBIN 31.6 PG (27.0-31.0); MEAN CORPUSCULAR VOLUME 95.8 FL (78-98); MONOCYTES # (AUTO) 0.3 X10'3 (0-0.9); MONOCYTES % (AUTO) 5.1 % (2-12); NEUTROPHILS # (AUTO) 5.3 X10'3 (1.8-7.7); NEUTROPHILS % (AUTO) 88.8 % (42-75); PLATELET COUNT 109 X10'3 (140-440); RED BLOOD COUNT 3.61 X10'6 (4.70-6.10); RED CELL DISTRIBUTION WIDTH 19.7 % (11.5-14.5)
[2024-06-05 12:31] LABS: ALBUMIN 2.4 G/DL (3.4-5.0); ANION GAP 0 (8-16); BLOOD UREA NITROGEN 18 MG/DL (7-18); BUN/CREATININE RATIO 28.1 (10.0-20.0); CALCIUM 8.3 MG/DL (8.5-10.1); CHLORIDE 102 MMOL/L (99-107); CREATININE 0.64 MG/DL (0.60-1.10); GLUCOSE 95 MG/DL (70-104); POTASSIUM 4.3 MMOL/L (3.5-5.1); SODIUM 134 MMOL/L (135-145); TOTAL CARBON DIOXIDE 32.4 MMOL/L (24-32); eCRCL 86 ML/MIN; eGFR > 90 ML/MIN
== END 2024-06-05 15:10 | disposition home health service (06) | DRG 374 ==
LOC: ER 21:03 → ED HOLD 05-24 00:52 → ORTHO 4S 05-24 07:16 → SUR 3N 06-02 19:25
PROVIDERS: ADMIT Internal Medicine Pulmonary Disease; ATTEND Family Medicine
PROC: 0W993ZZ Drainage of Right Pleural Cavity, Percutaneous Approach (ICD-10-PCS; 2024-05-24)
PROC: B32T1ZZ Computerized Tomography (CT Scan) of Left Pulmonary Artery using Low Osmolar Contrast (ICD-10-PCS; 2024-05-24)
PROC: B3201ZZ Computerized Tomography (CT Scan) of Thoracic Aorta using Low Osmolar Contrast (ICD-10-PCS; 2024-05-24)
PROC: B32S1ZZ Computerized Tomography (CT Scan) of Right Pulmonary Artery using Low Osmolar Contrast (ICD-10-PCS; 2024-05-24)
PROC: 30233N1 Transfusion of Nonautologous Red Blood Cells into Peripheral Vein, Percutaneous Approach (ICD-10-PCS; principal; 2024-05-26)
PROC: 8E0W4CZ Robotic Assisted Procedure of Trunk Region, Percutaneous Endoscopic Approach (ICD-10-PCS; 2024-05-29)
PROC: 0DH64UZ Insertion of Feeding Device into Stomach, Percutaneous Endoscopic Approach (ICD-10-PCS; 2024-05-29)
PROC: 0W9B3ZZ Drainage of Left Pleural Cavity, Percutaneous Approach (ICD-10-PCS; 2024-06-02)
PROC: 0W993ZZ Drainage of Right Pleural Cavity, Percutaneous Approach (ICD-10-PCS; 2024-06-02)
DX: C15.5 Malignant neoplasm of lower third of esophagus (principal); E43 Unspecified severe protein-calorie malnutrition; J69.0 Pneumonitis due to inhalation of food and vomit; J96.01 Acute respiratory failure with hypoxia; Z68.1 Body mass index [BMI] 19.9 or less, adult; C78.00 Secondary malignant neoplasm of unspecified lung; J91.8 Pleural effusion in other conditions classified elsewhere; D84.9 Immunodeficiency, unspecified; D61.818 Other pancytopenia; R13.10 Dysphagia, unspecified; D50.9 Iron deficiency anemia, unspecified; G62.9 Polyneuropathy, unspecified; F17.210 Nicotine dependence, cigarettes, uncomplicated; J43.2 Centrilobular emphysema; Z66 Do not resuscitate; Z79.899 Other long term (current) drug therapy
CPT/HCPCS: 32555; 36415; 36430; 43235; 71045; 71275; 74018; 80048; 80053; 80061; 80320; 81003; 82272; 82607; 82728; 82945; 82948; 83036; 83540; 83550; 83605; 83615; 83735; 83880; 83986; 84132; 84134; 84145; 84157; 84484; 85007; 85008; 85025; 85027; 85045; 85610; 86885; 86900; 86901; 86920; 86945; 87040; 87070; 87075; 87081; 87502; 87503; 87811; 88108; 88305; 88341; 88342; 89051; 92508; 92616; 93005; 93306; 94640; 94760; 96365; 99152; 99291; A4215; A4615; A4618; A4620; A6212; A6213; A6222; A7000; B4087; G0378; J0131; J0456; J0696; J1100; J1171; J1940; J2250; J2270; J2405; J2470; J2543; J2704; J3010; J3490; J7030; J7040; J7050; J7120; P9016; P9045; Q9967

== ENCOUNTER 2024-08-01 10:23 | Emergency (ER) | payer MEDICARE, MEDICAID ==
[~2024-08-01] VITALS: Ht 182.9 cm; Wt 54.5 kg
[~2024-08-01 10:23] MED LIST: GABA-535 PO; IPRA3AMP9 NEB; METO5SOL22 GT; ONDA-245 PO; PSYL0.4C2 PO
[2024-08-01 10:25] VITALS: BP 102/63; PULSE 101; RESP 15; O2SAT 99
--- NOTE | 2024-08-01 11:04 | Physician Documentation ---
History of Present Illness General Chief Complaint: See Chief Complaint Stated Complaint: FEEDING TUBE NEEDS NEW CAP Time Seen by MD: 10:48 Primary Medical Doctor: elisabeth History of Present Illness Initial Comments [age] year male presents to the emergency department for evaluation in hopeful replacement a cap to his G-tube. Scab is functional in his tube is patent. He is just frustrated at the daily difficulties it is of taking it on off. He called the office of his GI surgeon yet was referred to the emergency department. No other complaints. Medication Reconciliation Allergies: Coded Allergies: No Known Allergies (Unverified , 05/23/24) Scheduled Gabapentin (Gabapentin), 1 CAP PO DAILY, (Reported) Metoclopramide HCl (Metoclopramide HCl), 5 MG GT Q6H Ondansetron 8mg ODT (Ondansetron Odt), 1 TAB PO Q6H Psyllium Husk (Metamucil), 1 CAP PO Q12H Scheduled PRN Ipratropium/Albuterol Sulfate (IPRAT-ALBUT 0.5-3(2.5) MG/3 ML nebule), 3 ML NEB Q6H PRN for SOB or wheezing Review of Systems All Other Systems at this time: Reviewed and Negative Constitutional: Denies: fever, chills Physical Exam Physical Exam Vital Signs: RN Vital Signs have been reviewed: Yes, Temperature: 98.1, Source: Temporal, Heart Rate: 101, Respiratory Rate: 15, BP: 102/63, Pulse Oximetry: 99, Weight: 54.550 General Appearance: alert, WD/WN, no apparent distress, cachetic Head: normal inspection Face: normal inspection Pupils/EOM/Fundus: PERRLA Gastrointestinal JG tube well secured to the abdominal wall without erythema. Cap is removal and tube is patent. Extremities: normal range of motion Neurologic: oriented x4 Motor / Sensory: no motor deficit, no sensory deficit Psychiatric: normal mood/affect Progress Results/Orders Results/Orders Vital Signs 08/01/24 10:25 Temp 98.1 Pulse 101 Resp 15 B/P (MAP) 102/63 Pulse Ox 99 Medical Decision Making Differential Diagnosis 74-year-old male who is having difficulties with his J-tube calf is seeking some guidance. I spoke to the GI office and I have scheduled him an appointment for this at 11:45 a.m.. He has tube is patent his calf is operable. He is discharged in safe stable condition and was scheduled follow up with the office of Dr. Rodriguez. Departure Disposition: 01 HOME / SELF CARE / HOMELESS Impression: Primary Impression: G tube feedings Condition: Stable Additional Instructions: Please follow up with the office of Dr. Melgar. You have a scheduled appointment at 11:45 a.m. on . Thank you for visiting emergency department of [facility]. [facility]. Referrals: NO PRIMARY CARE PROVIDER (PCP) Education Educated: Patient Educated regarding: diagnosis, treatment Signature Scribe Signature: . Attestation: . QUIANA MOJICA PAC Aug 01, 2024 11:04
[2024-08-01 11:09] VITALS: TEMP 98.1
== END 2024-08-01 11:10 | disposition home or self-care (01) ==
LOC: ER 10:23
DX: Z93.1 Gastrostomy status (principal)
CPT/HCPCS: 99281

== ENCOUNTER 2024-09-01 22:39 | Inpatient (IN) | payer MEDICARE, MEDICAID ==
[~2024-09-01] VITALS: Ht 182.9 cm; Wt 53.0 kg
--- NOTE | 2024-09-01 22:45 | Physician Documentation ---
History of Present Illness ~ Stated Complaint: SOB Time Seen by MD: 22:45 Primary Medical Doctor: elisabeth DIOP 74-year-old male, history of throat cancer with lung involvement on chemotherapy, who presents with shortness of breath. Per EMS, the patient was found to have oxygen saturations in the 70s and was placed on 2 L nasal cannula. The patient tells me that he has had 2 similar episodes in the past, where he develops fluid in his lungs and then gets short of breath. He tells me that they drained a L of fluid from both of his lungs in the past. He tells me that all of the symptoms today feel exactly the same. He reports over the past 5 days having progressively worsening shortness of breath to the point where he is not able to walk across a room due to shortness of breath. He reports an occasional cough, and is coughing up some blood. He denies any fevers or chills. No chest pain. No leg pain or swelling. He does have a G-tube. Medication Reconciliation Allergies: Coded Allergies: No Known Allergies (Unverified , 09/01/24) Scheduled Gabapentin (Gabapentin), 1 CAP PO DAILY, (Reported) Metoclopramide HCl (Metoclopramide HCl), 5 MG GT Q6H Scheduled PRN Ipratropium/Albuterol Sulfate (IPRAT-ALBUT 0.5-3(2.5) MG/3 ML nebule), 3 ML NEB Q6H PRN for SOB or wheezing Discontinued Medications Ondansetron 8mg ODT (Ondansetron Odt), 1 TAB PO Q6H Discontinued Reason: patient no longer taking Psyllium Husk (Metamucil), 1 CAP PO Q12H Discontinued Reason: patient no longer taking Past Medical History Patient History: Patient reports no known family medical history. Review of Systems Constitutional: Denies: fever Respiratory: Reports: cough, shortness of breath, SOB with exertion Cardiovascular: Denies: chest pain Physical Exam Physical Exam General: This is a thin chronically ill-appearing older man, not in acute distress HEENT: Atraumatic, oropharynx appears dry Heart: Mild tachycardic, appears regular Lungs: Breath sounds are diminished in the lung bases, right worse than left, clear in the upper lung sandoval, oxygen saturations in the 90s on 2 L nasal cannula, no coughing noted while I am in the room Abdomen: Soft, nondistended, G-tube in place Extremities: Warm and well-perfused, no significant lower extremity edema Neuro: Alert and oriented, no focal deficits Psychiatric: Calm and cooperative with exam Procedures Procedures Procedure note: Thoracentesis, right posterior chest for right pleural effusion Indication: Symptomatic pleural effusions Consent: Verbal consent and written consent was obtained from the patient after discussing risks and benefits including bleeding, infection pneumothorax Procedure: Ultrasound was utilized to locate the pleural effusion safe site for drainage. Using sterile technique, a thoracentesis were performed. The skin was cleaned and anesthetized. 1200 cc of straw-colored fluid was removed. At the end of the procedure, there was air that came out with the fluid, concerning for pneumothorax. The patient tolerated this well. Postprocedure chest x-ray shows pneumothorax as suspected. No other complication. Chest Tube Chest Tube : Location: anterior axillary line, fifth intercostal space Chest Tube Procedure: betadine prep Anesthesia: 1% Lidocaine Tube Drainage: see nurses notes Post Procedure CXR?: Yes Procedure Note A pleurovent was placed for a right-sided pneumothorax. The skin was cleaned with Betadine and then chlorhexidine. He was draped, and using sterile technique, the pleurovent was placed successfully. Air was aspirated from the chest. He was placed on suction. Post procedure chest x-ray shows improvement of his pneumothorax. Tube is in good position. Progress Results/Orders Results/Orders Orders - QUIANA AMAYA MD Monitor (09/01/24 22:46) Ct Chest (09/01/24 23:30) Page Hospitalist (09/02/24 01:34) Completed Orders - QUIANA AMAYA MD Electrocardiogram (09/01/24 22:46) Cbc/Diff (09/01/24 22:46) LA (09/01/24 22:51) Pt Inr (09/01/24 22:51) CMP (09/01/24 22:54) Ct Chest (09/01/24 23:30) Hgb A1c (09/01/24 22:54) Medications Received in ER Medications (Trade) Dose Ordered Sig/Dangelo Route PRN Reason Start Time Stop Time Status Last Admin Dose Admin (Dilaudid inj.) 0.5 mg Q4H PRN IV SEVERE PAIN 7-10 09/02/24 02:15 09/02/24 05:10 0.5 MG Vital Signs 09/01/24 09/01/24 09/01/24 09/02/24 22:41 23:05 23:08 00:00 Temp 98.2 98.2 Pulse 92 93 100 Resp 20 20 18 18 B/P (MAP) 120/79 (93) 105/69 (81) Pulse Ox 100 99 99 O2 Flow Rate 2.0 2.0 2.0 09/02/24 09/02/24 01:00 02:00 Pulse 95 98 Resp 18 18 B/P (MAP) 103/76 (85) 114/79 (91) Pulse Ox 100 100 O2 Flow Rate 2.0 2.0 Laboratory Tests Test 09/01/24 22:54 White Blood Count 4.1 L Red Blood Count 3.73 L Hemoglobin 12.0 L Hematocrit 35.7 L Mean Corpuscular Volume 95.9 Mean Corpuscular Hemoglobin 32.3 H Mean Corpuscular Hemoglobin Concent 33.7 Red Cell Distribution Width 16.5 H Platelet Count 127 L Mean Platelet Volume 7.0 L Neutrophils (%) (Auto) 83.5 H Lymphocytes (%) (Auto) 6.7 L Monocytes (%) (Auto) 8.0 Eosinophils (%) (Auto) 0.8 Basophils (%) (Auto) 1.0 Neutrophils # (Auto) 3.4 Lymphocytes # (Auto) 0.3 L Monocytes # (Auto) 0.3 Eosinophils # (Auto) 0.0 Basophils # (Auto) 0.0 CBC Comment Prothrombin Time 10.9 INR International Normalized Ratio 1.1 Coagulation Comments Sodium Level 136 Potassium Level 4.7 Chloride Level 104 Carbon Dioxide Level 24.1 Anion Gap 8 Blood Urea Nitrogen 29 H Creatinine 0.88 Estimated GFR/1.73 m2 85 BUN/Creatinine Ratio 33.0 H Glucose Level 113 H Hemoglobin A1c 4.3 L Lactic Acid Level 1.8 Calcium Level 8.4 L Total Bilirubin 1.5 H Aspartate Amino Transf (AST/SGOT) 68 H Alanine Aminotransferase (ALT/SGPT) 20 Alkaline Phosphatase 84 Total Protein 6.8 Albumin 2.7 L Globulin 4.1 Albumin/Globulin Ratio 0.7 L Chemistry Comments EKG/XRAY/CT/US/VASC/MRI EKG : Additional Comment I personally interpreted the EKG and this shows: Neuro complex rhythm, difficult to appreciate P waves, rate 92, QTC 479, no STEMI Chest X-Ray : Additional Comments I personally reviewed the x-ray, and it shows: Post procedure chest x-ray shows a right-sided pneumothorax, with decreased pleural effusion. Repeat chest x-ray post chest tube: Small apical pneumothorax, significant lung expansion and improvement from previous chest x-ray. CT : Impression I personally reviewed the CT scan, and this shows bilateral pleural effusions with no focal consolidation to suggest pneumonia, unremarkable mediastinum Medical Decision Making Additional info obtained from: old records Findings Per chart review, the patient was last admitted to the hospital on May and had thoracentesis performed at that time Additional Infomation Differential includes pleural effusion, metastatic disease, pneumonia, PE, ACS, CHF, viral syndrome Assessment The patient presents with progressively worsening shortness of breath and hy poxia. He has a history of pleural effusions causing similar symptoms. He is otherwise afebrile, has no chest pain, and no findings to suggest an infection or a cardiac related cause. Labs show no acute anemia or leukocytosis. He is also not neutropenic. A CT scan of the chest was obtained that does show significant bilateral pleural effusions, right worse than left. No significant pneumonia or other abnormality. I feel he would benefit from a therapeutic thoracentesis. A thoracentesis was performed as above. Unfortunately, the patient then developed a right-sided pneumothorax. A chest tube drainage device was then placed with good re-expansion of his lungs on repeat chest x-ray. He will be admitted to the medicine service for further treatment and therapies. Departure Impression: Primary Impression: Acute hypoxic respiratory failure Additional Impressions: Bilateral pleural effusion Pneumothorax on right Referrals: NO PRIMARY CARE PROVIDER (PCP) Signature Scribe Signature: bekah Attestation: QUIANA Epperson MD Sep 01, 2024 22:45
--- NOTE | 2024-09-01 22:50 | ELECTROCARDIOGRAPH REPORT ---
[facility] Test Date: 2024-09-01 Test Time: 22:44:21 Pat Name: JOY HELMS Department: EMERGENCY ROOM Room: Gender: M Cabinetmaker Apprentice: SAMANTHA : 1950 Requested By: QUIANA AMAYA Order Number: [id number] Reading MD: Measurements Intervals [place] Rate: 92 P: 0 AK: 0 QRS: 1 QRSD: 82 T: 72 QT: 387 QTc: 479 Interpretive Statements Accelerated junctional rhythm Low voltage, extremity and precordial leads Probable anteroseptal infarct, old Please click the below link to view image of tracing.
[2024-09-01 23:13] LABS: MEAN PLATELET VOLUME 7.0 FL (7.4-10.4); RED CELL DISTRIBUTION WIDTH 16.5 % (11.5-14.5)
[2024-09-01 23:15] LABS: INR 1.1 INR
[2024-09-01 23:19] LABS: CREATININE 0.88 MG/DL (0.60-1.10); TOTAL CARBON DIOXIDE 24.1 MMOL/L (24-32); eCRCL 53 ML/MIN; eGFR 85 ML/MIN
[2024-09-02] VITALS (7 sets, daily range): BP systolic 102–133; BP diastolic 68–75; PULSE 85–110; RESP 14–24; TEMP 97.1–97.6; O2SAT 92–100
--- NOTE | 2024-09-02 02:03 | RADIOLOGY REPORT ---
CLINICAL HISTORY: SOB history of throat cancer with lung involvement TECHNIQUE: CT of the chest was performed without intravenous contrast. This exam was performed accord ing to our departmental dose optimization program. Up-to-date CT equipment and radiation dose reducti on techniques are utilized as appropriate. COMPARISON: None FINDINGS: Lower Neck: Unremarkable Axilla, Mediastinum and Jojo: No axillary adenopathy. There is mediastinal lymphadenopathy again not ed. Limited evaluation of the jojo in the absence of intravenous contrast. Heart and Great Vessels: Normal-sized heart with small pericardial effusion. The thoracic aorta is n ormal in caliber with mild calcified atherosclerotic plaque. At least gqeg-iw-xzjrdsak coronary arter y calcifications most pronounced in the left anterior descending coronary artery. The central pulmon [place] arteries are patent. There is a right IJ chest port with tip terminating in the upper right atriu m. Airway, Lungs and Pleura: Trachea and central airways are patent apart from nodules or polyps in the left mainstem bronchus. There is mild bronchial wall thickening. There is moderate centrilobular emph ysema. There is moderate 2 large bilateral pleural effusions. A small irregular ground-glass and cons olidative opacity on series 3, image 20. No pneumothorax. Upper Abdomen: Bulky retroperitoneal, gastrohepatic ligament lymphadenopathy. There is a percutaneous gastrostomy tube with balloon inflated in the body of the stomach. Mild upper abdominal ascites. Chest Wall and Osseous Structures: No destructive osseous lesion. IMPRESSION: Persistent mediastinal lymphadenopathy and bulky retroperitoneal and gastrohepatic ligament lymphaden opathy, compatible with metastatic disease. Omxmpzln-xj-ysbme bilateral pleural effusions. Small irregular mixed ground-glass and solid opacity in the right upper lobe which could be atypical infection versus metastatic disease. Attention on follow-up recommended. Moderate centrilobular emphysema. Calcified coronary artery disease up to khso-ms-zukhatmt in the left anterior descending coronary art rena. Radiation optimization: All CT scans at this facility use at least one of these dose optimization filomena hniques: automated exposure control mA and/or kV adjustment per patient size (includes targeted exam s where dose is matched to clinical indication) or iterative reconstruction.
[2024-09-02] MEDS ORDERED: potassium Cl 20 mEq SR tablet PO PRN ×2 (02:15)
[2024-09-02] MEDS ORDERED: magnesium hydroxide 30ml (MOM) UD suspension PO PRN (02:15)
[2024-09-02] MEDS ORDERED: magnesium sulf-water 2g/50mL 50 ML IV PRN (02:15)
[2024-09-02] MEDS ORDERED: HYDROcodone/acetaminophen 5mg/325mg tablet PO PRN (02:15)
[2024-09-02] MEDS ORDERED: mag hydrox/Alum hydrox/simeth 30ml oral suspension PO PRN (02:15)
[2024-09-02] MEDS ORDERED: HYDROcodone/acetaminophen 10/325mg tab PO PRN (02:15)
[2024-09-02] MEDS ORDERED: potassium Cl 40MEQ/1/2NS 520ml 520 ML IV PRN (02:15)
[2024-09-02] MEDS ORDERED: magnesium sulf-water 4G/100mL 100 ML IV PRN (02:15)
[2024-09-02] MEDS ORDERED: magnesium Cl slow-release 64mg tablet PO PRN (02:15)
[2024-09-02] MEDS ORDERED: HYDROmorphone/PF 0.2 MG/ML SYRINGE IV PRN (02:15)
--- NOTE | 2024-09-02 02:30 | HISTORY AND PHYSICAL-Residence ---
History & Physical Providers to CC Resident Creating Document: YOLIE BURDICK RES ~ History of Present Illness Primary Medical Doctor: elisabeth Reason for Admit\Complaint: Shortness of breath History of Present Illness This 74-year-old male with a medical history of esophageal cancer-now on chemotherapy, completed radiation; dysphagia-s/p about G-tube placement on 05/29/2024, bilateral thoracentesis in April 2024, tobacco use disorder, severe malnourishment presented to the ER with a chief complaint of worsening shortness of breaths in the last one week to 10 days. Even finds it difficult to talk. Complains of occasional sharp chest pain that lasts for about a minute and is not associated with any exacerbating or relieving factors. Denies any nausea or vomiting. States that he has been having diarrhea since the G-tube placement and using drinks to treat his malnutrition. He also complains of cough which gets worse with nebulization and strongly is denying nebulization. During his previous admission, about 1050 mL of pleural fluid removed from the right side on 05/24/24. He again got 1100 cc of right pleural fluid drained and 900 cc of left pleural fluid removed on 06/02/2024. He was also treated for pneumonia with Zosyn during that admission. Now, he denies any fever or chills but has difficulty even talking and so presented to the ER. Denies using any oxygen at home. Denies any pedal edema. He feels so weak and shortness of breath to walk. Today, about 1200 cc pleural fluid drained from the right side by the ER physician. Developed small right apical pneumothorax and so chest tube was placed with the ER physician. Remains hemodynamically stable. Stated that a biopsy was never done to diagnose him with esophageal cancer. PET scan was done and he was told that the cancer has spread to lungs, lymph nodes and abdomen. He gets chemotherapy infusion once in two weeks and 's office and the last dose was about one and half weeks back. Denies taking any oral liquids or solid food. Allergies: Coded Allergies: No Known Allergies (Unverified , 09/01/24) Home Medications Home Medications Active IPRAT-ALBUT 0.5-3(2.5) MG/3 ML nebule (Ipratropium/Albuterol Sulfate) 0.5 Mg-3 Mg (2.5 Mg Base)/3 Ml Ampul.neb 3 Ml NEB Q6H PRN 10 Days Metoclopramide HCl 5 Mg/5 Ml Solution 5 Mg GT Q6H 10 Days Ondansetron Odt (Ondansetron HCl) 8 Mg Tab.rapdis 1 Tab PO Q6H 3 Days Metamucil (Psyllium Husk) 0.4 Gram Capsule 1 Cap PO Q12H 30 Days Reported Gabapentin 400 Mg Capsule 1 Cap PO DAILY 30 Days Past Medical History Past Medical History Esophageal carcinoma diagnosed in 2021, tobacco use disorder, severe malnourishment, neuropathy Past Surgical History Surgical History Comment Appendectomy Family History Family History: Patient reports no known family medical history. Past Social History Social History Comment Smoked two pack of cigarettes per day for the past 40 years and quit smoking tobacco when he was diagnosed with esophageal cancer. Quit alcohol about nine years back and stated that he drank a lot before that. Remote history of smoking marijuana. ROS ROS Constitutional: No fever, chills, dizziness, weakness, weight gain or loss Eyes: No pain, erythema, discharge, blurring of vision ENT: No sore throat, epistaxis, tinnitus Cardiovascular: No chest pain, chest pressure, chest discomfort, palpitations, syncope, lower extremity edema, paroxysmal nocturnal dyspnea Respiratory: Shortness of breaths and cough present. No hemoptysis Gastrointestinal: Complains of loose stools, has difficulty swallowing and has a G-tube. Normal appetite. No nausea, vomiting, constipation, hematemesis, abdominal pain, bloating, melena or fresh blood Genitourinary: No frequency, urgency, nocturia, hematuria or dysuria Musculoskeletal: No arthralgias or myalgias Integumentary: No change in skin, hair, nails. No swelling, bruising, abrasions Neurologic: No headache, neck pain, numbness or tingling of the extremities, weakness Psychiatric: No delusions, depression, loss of interest in normal activity or change in sleep pattern, hallucinations, suicidal ideations Endocrine: No fatigue, weakness, polydipsia, polyuria, change in appetite, heat or cold intolerance, sweating, dry skin Hematological: No bleeding, petechiae, bruising Allergies: No asthma or urticaria Constitutional: Denies: fever Respiratory: Reports: cough, shortness of breath, SOB with exertion Cardiovascular: Denies: chest pain Exam Vitals: Vital Signs Date Time Temp Pulse Resp B/P (MAP) Pulse Ox O2 Delivery O2 Flow Rate FiO2 09/02/24 01:00 95 18 103/76 (85) 100 2.0 09/01/24 23:08 98.2 General: Alert and oriented x4. Appears in mild distress due to shortness of breaths. Appears emaciated with sunken eyes and bilateral temporal wasting HEENT: Normocephalic and atraumatic. Sunken eyes and bilateral temporal wasting noted. Pupils equal round reactive to light and accommodation. Extraocular movements intact. Oral and nasal mucosa moist Neck: Trachea is in midline. No masses or JVD Chest: Bilateral decreased breath sounds mainly in the basal region. Bilateral basal crackles present. No rhonchi or wheezes Cardiovascular: Regular rate and rhythm. S1-S2 normal. No rubs or murmurs Abdomen: Soft, nontender nondistended. Bowel sounds present. G-tube in place Extremities: No cyanosis, clubbing or edema Central Nervous System: No gross sensory or motor deficits. CN II to XII intact Skin: Warm and dry Diagnostic Data Last Recorded Lab Results: 09/01/[id number] Diagnostic Data: Laboratory Tests Test 09/01/24 22:54 Prothrombin Time 10.9 SECONDS (9.0-12.0) INR International Normalized Ratio 1.1 INR Coagulation Comments Advance Care Planning Advanced Care plannin - 30 Minutes Additional Plan Acute hypoxemic respiratory failure Requiring about 2 L O2 via nasal cannula Chest CT showed [id number] bilateral pleural effusions, Persistent mediastinal lymphadenopathy and bulky retroperitoneal and gastrohepatic ligament lymphadenopathy, compatible with metastatic disease.Small irregular mixed ground-glass and solid opacity in the right upper lobe which could be atypical infection versus metastatic disease. Attention on follow-up recommended. Moderate centrilobular emphysema. Calcified coronary artery disease up to [id number]-tl-yumuxkiq in the left anterior descending coronary artery. ER physician drained about 1200 cc of pleural fluid. Small apical right pneumothorax developed. Chest tube placed Pleural fluid analysis orders placed Recommend ICU consult in a.m. for the management of chest tube Metastatic Esophageal cancer-is on chemotherapy - once every two weeks Last dose of chemotherapy was about one and half weeks back Not neutropenic-does not need any isolation Elevated total bilirubin, mildly elevated AST Continue to monitor COPD-no acute exacerbation Strongly is denying any maintenance nebulization Peripheral neuropathy Continue home medication gabapentin Pancytopenia Likely bone suppression from chemotherapy No neutropenia DVT prophylaxis: Lovenox 40 mg subcutaneous daily Diet: G-tube feeds Yolie Burdick MD Internal Medicine Resident, PGY 3 Date of Service: Sep 02, 2024 Billing Provider: CAMI SCALES MD, MANOJNA RES Sep 02, 2024 02:30
--- NOTE | 2024-09-02 04:51 | RADIOLOGY REPORT ---
EXAM: DI CHEST,SINGLE VIEW HISTORY: post thoracentesis, eval effusion, ptx COMPARISON: DI CHEST,SINGLE VIEW on DOS: 06/05/24, DI CHEST,SINGLE VIEW on DOS: 06/01/24, DI CHEST,SINGLE VIEW on DOS: 05/30/24, DI CHEST,SINGLE VIEW on DOS: 05/27/24, DI CHEST,SINGLE VIEW on DOS: 05/23/24, CT scan of the chest dated 09/01/2024. TECHNIQUE: Portable upright AP view of the chest was performed. FINDINGS: There is a moderate sized right pneumothorax measuring 3.9 cm in the right lung base and 2.5 cm in th e right upper chest. There is decreased right pleural effusion consistent with recent thoracentesis. There is small to moderate left pleural effusion. No left pneumothorax. The heart is not enlarged. Me diastinal lymphadenopathy is better characterized on prior CT scan. Emphysematous changes are better characterized on prior CT scan. IMPRESSION: 1. Moderate size right pneumothorax status post thoracentesis. Recommend short interval follow-up fatemeh st x-ray if chest tube placement is not planned. 2. Jlhvy-je-zshstjfn left pleural effusion. 3. Emphysema. Critical Result: Moderate size right pneumothorax. Findings discussed with the patient's nurse Bev at 09/02/2024 06:47 AM CDT, and acknowledged receip t and understanding of the findings.
[2024-09-02] MEDS: HYDROmorphone inj. 0.5 MG/0.5 ML DISP.SYRIN IV PRN (05:10)
[2024-09-02] MEDS: LIDOcaine 1% 30ml preserv. free vial IJ STA (05:13)
--- NOTE | 2024-09-02 06:14 | RADIOLOGY REPORT ---
CHEST RADIOGRAPH Indication: post chest tube for pneumothorax Technique: Single frontal view of the chest was obtained COMPARISON: DI CHEST,SINGLE VIEW on DOS: 09/02/24, DI CHEST,SINGLE VIEW on DOS: 06/05/24, DI CHEST,SINGLE VIEW on DOS: 06/01/24, DI CHEST,SINGLE VIEW on DOS: 05/30/24, DI CHEST,SINGLE VIEW on DOS: 05/27/24 FINDINGS: Lines and Tubes: Right chest port in satisfactory position. Right chest tube in satisfactory positio n. Lungs: Pulmonary vascular congestion Pleura: Small bilateral pleural effusion. Small right apical pneumothorax. Cardiomediastinal contours: Unremarkable Bones: Unremarkable IMPRESSION: Improved now small right apical pneumothorax with right chest tube in satisfactory position.
[2024-09-02] MEDS: K and/or MAG REPLACEMENT MC SCH (08:00)
[2024-09-02] MEDS ORDERED: HYDROmorphone inj. 0.5 MG/0.5 ML DISP.SYRIN IV PRN (08:40)
[2024-09-02] MEDS: GABAPENTIN 300 MG/6 ML oral SOLUTION cup GT SCH (08:43)
[2024-09-02] MEDS ORDERED: GABAPENTIN 300 MG/6 ML oral SOLUTION cup GT SCH (08:43)
[2024-09-02] MEDS ORDERED: HYDROcodone/acetaminophen 7.5MG/325MG per 15ml UD CUP GT PRN (08:45)
[2024-09-02] MEDS ORDERED: HYDROcodone/acetaminophen 7.5MG/325MG per 15ml UD CUP PO PRN (08:46)
[2024-09-02] MEDS ORDERED: mag hydrox/Alum hydrox/simeth 30ml oral suspension GT PRN (08:47)
[2024-09-02] MEDS ORDERED: magnesium hydroxide 30ml (MOM) UD suspension GT PRN (08:47)
[2024-09-02] MEDS ORDERED: POTASSIUM CHLORIDE 20 MEQ/15 ML oral solution GT PRN ×2 (08:48→08:50)
[2024-09-02 09:02] LABS: MEAN PLATELET VOLUME 6.9 FL (7.4-10.4); RED CELL DISTRIBUTION WIDTH 16.6 % (11.5-14.5)
[2024-09-02 09:15] LABS: APTT 25 SECONDS (22-32); CREATININE 0.77 MG/DL (0.60-1.10); INR 1.1 INR; PHOSPHORUS 4.0 MG/DL (2.3-4.5); TOTAL CARBON DIOXIDE 25.1 MMOL/L (24-32); eCRCL 61 ML/MIN; eGFR > 90 ML/MIN
--- NOTE | 2024-09-02 11:23 | PROGRESS NOTE ---
Progress Note Dictate Providers to CC CC: SEGUNDO JUNG MD ~ Progress Note: 74-year-old gentleman with a history of esophageal cancer with feeding tube in place Recurrent pleural effusion Attempted thoracentesis by the emergency room provider last night resulting in iatrogenic right pneumothorax Some sort of percutaneous catheter placed in the right chest cavity with near resolution of pneumothorax I was asked to follow the patient and manage the chest tube. Atrium with no evidence of air leak Minimal drainage No blood No crepitus No dyspnea Continue chest tube to 10 cm water suction Anticipate removal in the next 24-48 hours Antibiotic Ordered?: N/A Objective Vitals Vital Signs Date Time Temp Pulse Resp B/P (MAP) Pulse Ox O2 Delivery O2 Flow Rate FiO2 09/02/24 11:00 18 09/02/24 08:57 89 09/02/24 07:47 97.5 133/70 (91) 99 Nasal Cannula 3.0 Lab Results: 09/02/24 0849 09/02/24 0849 Coagulation Studies Laboratory Tests Test 09/02/24 08:49 Prothrombin Time 10.9 SECONDS (9.0-12.0) INR International Normalized Ratio 1.1 INR Activated Partial Thromboplast Time 25 SECONDS (22-32) Coagulation Comments SEGUNDO JUNG MD Sep 02, 2024 11:22
[2024-09-02] MEDS ORDERED: MECO10005 PO (13:04)
[2024-09-02] MEDS ORDERED: MELA10TA2 PO (13:05)
--- NOTE | 2024-09-02 17:45 | PROGRESS NOTE ---
Daily Progress Note Providers to CC ~ Antibiotic Timeout Antibiotic Ordered?: No Subjective No new complaints. Patient is seen resting comfortably. Objective Vital Signs Date Time Temp Pulse Resp B/P (MAP) Pulse Ox O2 Delivery O2 Flow Rate FiO2 09/02/24 17:21 20 09/02/24 15:00 97.3 92 102/68 (79) 98 Nasal Cannula 2.0 Result Diagram: 09/02/24 0849 09/02/24 0849 Elderly frail male HEENT normocephalic atraumatic extraocular movements intact Neck supple, no JVD Chest: Decreased breath sounds, port on the right side noted. We will chest tube on the left side Heart: Regular rate rhythm, no murmur or gallop rub Abdomen soft, nontender, no organomegaly Extremities no cyanosis clubbing or edema Neuro exam grossly nonfocal Coagulation Studies Laboratory Tests Test 09/02/24 08:49 Prothrombin Time 10.9 SECONDS (9.0-12.0) INR International Normalized Ratio 1.1 INR Activated Partial Thromboplast Time 25 SECONDS (22-32) Coagulation Comments Other Results Medications reviewed Problem\Assessment\Plan 74-year-old male with a medical history of esophageal cancer-now on chemotherapy, completed radiation; dysphagia-s/p about G-tube placement on 05/29/2024, bilateral thoracentesis in April 2024, tobacco use disorder, severe malnourishment presented to the ER with a chief complaint of worsening shortness of breaths in the last one week to 10 days. 1. Acute hypoxemic respiratory failure: Continue supplemental oxygen 2. Bilateral pleural effusion: Patient underwent evaluation with a CT chest which showed [id number] bilateral pleural effusions. Patient underwent a thoracentesis by the ER physician and 1200 cc of fluid was removed however patient developed a pneumothorax and a chest tube was placed. Requested consultation from surgery Dr. Phoenix 3. History of metastatic esophageal CA: Patient is on chemotherapy diagnosed in 2021. 4. COPD without exacerbation: Inhaled bronchodilators as needed 5. Peripheral neuropathy: Continue gabapentin 6. Nutrition: Patient has a PEG tube. Continue PEG feeding. 7. Code status: DNR. Date of Service: Sep 02, 2024 Billing Provider: GAIL LIVINGSTON MD Common Visit Codes: [id number] INP/OBS CARE(HIGH) GAIL LIVINGSTON MD Sep 02, 2024 17:45
[2024-09-02] MEDS: enoxaparin 40mg/0.4ml syringe SQ SCH (20:00)
[2024-09-02] MEDS: ondansetron/PF 4mg/2ml inj IV PRN (23:05)
[2024-09-03] VITALS (7 sets, daily range): BP systolic 99–118; BP diastolic 60–78; PULSE 104–121; RESP 16–21; TEMP 97.3–98; O2SAT 90–96
[2024-09-03 00:38] LABS: LEUKOCYTE ESTERASE ,URINE NEGATIVE (Neg); NITRITES, URINE NEGATIVE (Neg); OCCULT BLOOD,URINE NEGATIVE (Neg)
[2024-09-03 00:42] LABS: UA COLLECTION TYPE NON-SPECIFIED
[2024-09-03 06:31] LABS: MEAN PLATELET VOLUME 6.9 FL (7.4-10.4); RED CELL DISTRIBUTION WIDTH 16.6 % (11.5-14.5)
[2024-09-03 06:41] LABS: APTT 28 SECONDS (22-32); INR 1.1 INR
[2024-09-03 06:57] LABS: CHOL/HDL RATIO 5.4 (0.00-4.99); CREATININE 0.93 MG/DL (0.60-1.10); LDL CHOLESTEROL 157 MG/DL (50-100); PHOSPHORUS 3.5 MG/DL (2.3-4.5); TOTAL CARBON DIOXIDE 25.4 MMOL/L (24-32); eCRCL 50 ML/MIN; eGFR 80 ML/MIN
--- NOTE | 2024-09-03 07:50 | RADIOLOGY REPORT ---
CLINICAL INFORMATION: 74 years old, Male; pneumothorax. TECHNIQUE: Single AP portable chest radiograph was obtained. COMPARISON: DI CHEST,SINGLE VIEW on DOS: 09/02/24, DI CHEST,SINGLE VIEW on DOS: 09/02/24, DI CHEST,SINGLE VIEW on DOS: 06/05/24 FINDINGS: Stable positioning of the right chest tube. Stable small right apical pneumothorax. Small bilateral p leural effusions with overlying atelectasis and/or consolidation are stable. Stable satisfactory posi tioning of the right internal jugular port catheter. IMPRESSION: No significant interval change as detailed above. Stable small right apical pneumothorax with stable positioning of the right chest tube.
--- NOTE | 2024-09-03 13:20 | PROGRESS NOTE ---
Daily Progress Note Providers to CC ~ Antibiotic Timeout Antibiotic Ordered?: No Subjective No new complaints, patient is seen resting comfortably. Patient has questions about the Reglan that was prescribed to him during last visit. He states he has not started taking it. Objective Vital Signs Date Time Temp Pulse Resp B/P (MAP) Pulse Ox O2 Delivery O2 Flow Rate FiO2 09/03/24 10:57 98.0 109 18 102/68 (79) 95 Nasal Cannula 1.0 Result Diagram: 09/03/24 0549 09/03/24 0549 Elderly frail male with bitemporal wasting. HEENT normocephalic atraumatic extraocular movements intact Neck supple, no JVD Chest: Decreased breath sounds, port on the right side noted. We will chest tube on the left side Heart: Regular rate rhythm, no murmur or gallop rub Abdomen soft, nontender, no organomegaly , scaphoid, G-tube noted Extremities no cyanosis clubbing or edema Neuro exam grossly nonfocal Coagulation Studies Laboratory Tests Test 09/03/24 05:49 Prothrombin Time 11.4 SECONDS (9.0-12.0) INR International Normalized Ratio 1.1 INR Activated Partial Thromboplast Time 28 SECONDS (22-32) Coagulation Comments Other Results Medications reviewed. Problem\Assessment\Plan 74-year-old male with a medical history of esophageal cancer-now on chemotherapy, completed radiation; dysphagia-s/p about G-tube placement on 05/29/2024, bilateral thoracentesis in April 2024, tobacco use disorder, severe malnourishment presented to the ER with a chief complaint of worsening shortness of breaths in the last one week to 10 days. 1. Acute hypoxemic respiratory failure: Continue supplemental oxygen 2. Bilateral pleural effusion: Patient underwent evaluation with a CT chest which showed [id number] bilateral pleural effusions. Patient underwent a thoracentesis by the ER physician and 1200 cc of fluid was removed however patient developed a pneumothorax and a chest tube was placed. RN code status no output from the chest tube. Dr. Phoenix is following along. Patient likely to have a malignant pleural effusion. 3. History of metastatic esophageal CA: Patient is on chemotherapy diagnosed in 2021. 4. COPD without exacerbation: Inhaled bronchodilators as needed 5. Peripheral neuropathy: Continue gabapentin 6. Nutrition: Continue G-tube feeding 7. Severe protein calorie malnutrition:Nutritional supplements per dietary. Code status: DNR. Date of Service: Sep 03, 2024 Billing Provider: GAIL LIVINGSTON MD Common Visit Codes: [id number] INP/OBS CARE(HIGH) GAIL LIVINGSTON MD Sep 03, 2024 13:20
--- NOTE | 2024-09-03 23:00 | PROGRESS NOTE ---
Progress Note Dictate Providers to CC CC: SEGUNDO JUNG MD ~ Progress Note: No output from chest tube No air leak stable cxr water seal Antibiotic Ordered?: N/A Objective Vitals Vital Signs Date Time Temp Pulse Resp B/P (MAP) Pulse Ox O2 Delivery O2 Flow Rate FiO2 09/03/24 21:48 18 09/03/24 18:30 123 09/03/24 18:27 97.9 107/65 (79) 90 Nasal Cannula 1.0 Lab Results: 09/03/24 0549 09/03/24 0549 Coagulation Studies Laboratory Tests Test 09/03/24 05:49 Prothrombin Time 11.4 SECONDS (9.0-12.0) INR International Normalized Ratio 1.1 INR Activated Partial Thromboplast Time 28 SECONDS (22-32) Coagulation Comments SEGUNDO JUNG MD Sep 03, 2024 23:00
[2024-09-04] VITALS (8 sets, daily range): BP systolic 92–115; BP diastolic 57–72; PULSE 96–107; RESP 12–19; TEMP 97.6–97.9; O2SAT 92–99
[2024-09-04 06:46] LABS: MEAN PLATELET VOLUME 7.3 FL (7.4-10.4); RED CELL DISTRIBUTION WIDTH 16.6 % (11.5-14.5)
[2024-09-04 07:04] LABS: APTT 28 SECONDS (22-32); INR 1.1 INR
[2024-09-04 07:10] LABS: CREATININE 0.89 MG/DL (0.60-1.10); PHOSPHORUS 2.8 MG/DL (2.3-4.5); TOTAL CARBON DIOXIDE 27.4 MMOL/L (24-32); eCRCL 55 ML/MIN; eGFR 84 ML/MIN
[2024-09-04] MEDS: HYDROcodone/acetaminophen 7.5MG/325MG per 15ml UD CUP GT PRN (07:51)
--- NOTE | 2024-09-04 08:18 | RADIOLOGY REPORT ---
CHEST RADIOGRAPH Indication: pneumothorax Technique: Single AP portable chest radiograph was obtained. Comparison: DI CHEST,SINGLE VIEW on DOS: 09/03/24, DI CHEST,SINGLE VIEW on DOS: 09/02/24, DI CHEST,SINGLE VIEW on DOS: 09/02/24, DI CHEST,SINGLE VIEW on DOS: 06/05/24, DI CHEST,SINGLE VIEW on DOS: 06/01/24, DI CH EST,SINGLE VIEW on DOS: 09/03/24 FINDINGS: Stable positioning of the right chest tube. Stable small right apical pneumothorax. Small bilateral p leural effusions with overlying atelectasis and/or consolidation are stable. Stable satisfactory posi tioning of the right internal jugular port catheter. IMPRESSION: No significant interval change as detailed above. Stable small right apical pneumothorax with stable positioning of the right chest tube.
--- NOTE | 2024-09-04 12:34 | RADIOLOGY REPORT ---
Date: 09/04/2024 11:59 AM Examination: DI ABDOMEN,SINGLE VIEW(KUB) History: abd pain at g tube site Comparison: DI ABDOMEN,SINGLE VIEW(KUB) on DOS: 06/01/24, DI ABDOMEN,SINGLE VIEW(KUB) on DOS: 05/31/24 TECHNIQUE: Frontal views of the abdomen was obtained. FINDINGS: Bowel gas pattern is unremarkable. Small bilateral pleural effusions. No acute osseous abnormality identified. IMPRESSION: Nonobstructive bowel gas pattern. Gastrostomy to overlying the left upper quadrant
[2024-09-04] MEDS ORDERED: acetaminophen 325mg/10.15ml oral unit dose solution GT PRN ×2 (14:44→14:45)
--- NOTE | 2024-09-04 15:10 | PROGRESS NOTE ---
Daily Progress Note Providers to CC ~ Antibiotic Timeout Antibiotic Ordered?: No Subjective Patient has no new complaints. Doing well . Denies having any shortness of breath or chest pain. Objective Vital Signs Date Time Temp Pulse Resp B/P (MAP) Pulse Ox O2 Delivery O2 Flow Rate FiO2 09/04/24 11:28 14 09/04/24 11:00 97.6 103 101/67 (78) 96 Nasal Cannula 1.0 Result Diagram: 09/04/24 0609 09/04/24 0609 Elderly frail male with bitemporal wasting. HEENT normocephalic atraumatic extraocular movements intact Neck supple, no JVD Chest: Decreased breath sounds, port on the right side noted. Right-sided chest tube noted. Heart: Regular rate rhythm, no murmur or gallop rub Abdomen soft, nontender, no organomegaly , scaphoid, G-tube noted Extremities no cyanosis clubbing or edema Neuro exam grossly nonfocal Coagulation Studies Laboratory Tests Test 09/04/24 06:09 Prothrombin Time 11.4 SECONDS (9.0-12.0) INR International Normalized Ratio 1.1 INR Activated Partial Thromboplast Time 28 SECONDS (22-32) Coagulation Comments Other Results Medications reviewed Problem\Assessment\Plan 74-year-old male with a medical history of esophageal cancer-now on chemotherapy, completed radiation; dysphagia-s/p about G-tube placement on 05/29/2024, bilateral thoracentesis in April 2024, tobacco use disorder, severe malnourishment presented to the ER with a chief complaint of worsening shortness of breaths in the last one week to 10 days. 1. Acute hypoxemic respiratory failure: Continue supplemental oxygen 2. Bilateral pleural effusion: Patient underwent evaluation with a CT chest which showed [id number] bilateral pleural effusions. Patient underwent a thoracentesis by the ER physician and 1200 cc of fluid was removed however patient developed a pneumothorax and a chest tube was placed. RN code status no output from the chest tube. Dr. Phoenix is following along. No air leak and chest tube is attached to no water seal. Given his history of esophageal cancer, Patient likely to have a malignant pleural effusion. 3. History of metastatic esophageal CA: Patient is on chemotherapy diagnosed in 2021. 4. COPD without exacerbation: Inhaled bronchodilators as needed 5. Peripheral neuropathy: Continue gabapentin 6. Nutrition: Continue G-tube feeding 7. Severe protein calorie malnutrition:Nutritional supplements per dietary. Code status: DNR. Disposition: Likely to go home in 24-48 hours. Date of Service: Sep 04, 2024 Billing Provider: GAIL LIVINGSTON MD Common Visit Codes: [id number] INP/OBS CARE(HIGH) GAIL LIVINGSTON MD Sep 04, 2024 15:10
[2024-09-05] VITALS (8 sets, daily range): BP systolic 99–123; BP diastolic 64–75; PULSE 92–98; RESP 14–21; TEMP 97.3–97.8; O2SAT 92–99
[2024-09-05 06:12] LABS: HBSAG SCREEN Negative (Negative); HEP B CORE AB, IGM Negative (Negative); HEP B CORE AB, TOT Negative (Negative)
[2024-09-05 07:01] LABS: MEAN PLATELET VOLUME 7.2 FL (7.4-10.4); RED CELL DISTRIBUTION WIDTH 17.0 % (11.5-14.5)
[2024-09-05 07:11] LABS: INR 1.1 INR
[2024-09-05 07:27] LABS: CREATININE 0.73 MG/DL (0.60-1.10); PHOSPHORUS 2.7 MG/DL (2.3-4.5); TOTAL CARBON DIOXIDE 27.8 MMOL/L (24-32); eCRCL 65 ML/MIN; eGFR > 90 ML/MIN
--- NOTE | 2024-09-05 13:22 | PROGRESS NOTE ---
Daily Progress Note Providers to CC ~ Antibiotic Timeout Antibiotic Ordered?: No Subjective No acute events overnight. Patient examined at bedside. No new complaints, not in acute distress. Patient denies chest pain, sob, palpitations, abdominal pain, n/v/d. Vss, labs notable for stable H/H. Spoke to Dr. Phoenix, chest tube to be discontinued. Spoke to Dr. Teague, can hold chemo for another 3 weeks if discharged to rehab. Objective Vital Signs Date Time Temp Pulse Resp B/P (MAP) Pulse Ox O2 Delivery O2 Flow Rate FiO2 09/05/24 11:10 17 09/05/24 10:57 97.6 93 107/70 (82) 97 Nasal Cannula 1.0 Result Diagram: 09/05/2461309/05/24613 Physical Exam General: Generalized weakness, A&Ox 3, NAD HEENT: Normocephalic, PERRLA Neck: Supple, trachea midline, no JVD Chest: Diminished right lung, right chest tube in place Cardiovascular: RRR, S1&S2 GI: Soft and nontender Extremities: No cyanosis/clubbing/or edema LABORATORY DEVELOPMENT TECHNICIAN: CN II-XII intact, no focal deficits Musculoskeletal: No paraspinal muscle tenderness, no muscle spasm Skin: Warm and intact Coagulation Studies Laboratory Tests Test 09/04/24 06:09 09/05/24 06:14 Activated Partial Thromboplast Time 28 SECONDS (22-32) Prothrombin Time 10.8 SECONDS (9.0-12.0) INR International Normalized Ratio 1.1 INR Coagulation Comments Problem\Assessment\Plan 74-year-old male with a medical history of esophageal cancer-now on chemotherapy, completed radiation; dysphagia-s/p about G-tube placement on 05/29/2024, bilateral thoracentesis in April 2024, tobacco use disorder, severe malnourishment presented to the ER with a chief complaint of worsening shortness of breaths in the last one week to 10 days. Assessment & Plan Acute hypoxemic respiratory failure Bilateral pleural effusion PTX Metastatic esophageal CA, on chemo currently (Dr. Teague) Normocytic anemia -CT chest which showed [id number] bilateral pleural effusions. s/p thoracentesis in ED and 1200 cc of fluid was removed however patient developed a pneumothorax and a chest tube was placed. Dr. Phoenix is following along. No air leak and chest tube is attached to no water seal. Given his history of esophageal cancer, effusion likely secondary to malignancy. Unfortunately, no fluid analysis available. -09/05: Spoke to Dr. Phoenix, chest tube to be discontinued. Spoke to Dr. Teague, can hold chemo for another 3 weeks if discharged to rehab. COPD without exacerbation: prn bronchodilators Peripheral neuropathy: Continue gabapentin Nutrition: Continue G-tube feeding Severe protein calorie malnutrition: Nutritional supplements per dietary Code status: DNR Date of Service: Sep 05, 2024 Billing Provider: JOSE CABALLERO Common Visit Codes: [id number] INP/OBS CARE(HIGH) JOSE CABALLERO Sep 05, 2024 13:22
--- NOTE | 2024-09-05 16:49 | PROGRESS NOTE ---
Progress Note Dictate Providers to CC CC: SEGUNDO JUNG MD ~ Progress Note: No change in very small apical pneumothorax on water seal for 24 hours No clinical exchange administrator the last 24 hours on water seal Chest tube removed Repeat chest x-ray Surgery to sign off Antibiotic Ordered?: N/A Objective Vitals Vital Signs Date Time Temp Pulse Resp B/P (MAP) Pulse Ox O2 Delivery O2 Flow Rate FiO2 09/05/24 11:10 17 09/05/24 10:57 97.6 93 107/70 (82) 97 Nasal Cannula 1.0 Lab Results: 09/05/24 0614 09/05/24 0614 Coagulation Studies Laboratory Tests Test 09/04/24 06:09 09/05/24 06:14 Activated Partial Thromboplast Time 28 SECONDS (22-32) Prothrombin Time 10.8 SECONDS (9.0-12.0) INR International Normalized Ratio 1.1 INR Coagulation Comments SEGUNDO JUNG MD Sep 05, 2024 16:49
--- NOTE | 2024-09-05 20:17 | RADIOLOGY REPORT ---
CHEST RADIOGRAPH Indication: right pneumothorax Technique: Single frontal view of the chest was obtained Comparison: DI CHEST,SINGLE VIEW on DOS: 09/04/24, DI CHEST,SINGLE VIEW on DOS: 09/03/24, DI CHEST,SINGLE VIEW on DOS: 09/02/24 FINDINGS: Lines and Tubes: Right IJ approach port-A-Cath terminating within the right atrium. Lungs: Interstitial prominence with hazy opacification of bilateral lower lung zone and Indistinctnes s of bilateral hemidiaphragm. Unchanged minimal right apical pneumothorax. Cardiomediastinal contours: Unremarkable Bones: No acute osseous abnormality. IMPRESSION: Pulmonary vascular congestion with possible small bilateral pleural effusions and associated atelecta sis. Unchanged minimal right apical pneumothorax. Right IJ approach port-A-Cath terminating within right atrium.
[2024-09-06 02:00] VITALS: BP 121/77; PULSE 99; RESP 19; TEMP 97.1; O2SAT 98
[2024-09-06 06:00] VITALS: BP 121/74; PULSE 92; RESP 13; TEMP 97.8; O2SAT 97
[2024-09-06 06:32] LABS: MEAN PLATELET VOLUME 7.1 FL (7.4-10.4); RED CELL DISTRIBUTION WIDTH 16.8 % (11.5-14.5)
[2024-09-06 06:37] LABS: INR 1.0 INR
[2024-09-06 06:54] LABS: CREATININE 0.73 MG/DL (0.60-1.10); PHOSPHORUS 2.9 MG/DL (2.3-4.5); TOTAL CARBON DIOXIDE 29.9 MMOL/L (24-32); eCRCL 65 ML/MIN; eGFR > 90 ML/MIN
[2024-09-06 08:00] VITALS: RESP 13; O2SAT 97
[2024-09-06 11:00] VITALS: BP 110/70; PULSE 92; RESP 21; TEMP 97.1; O2SAT 97
[2024-09-06 12:15] VITALS: RESP 19
--- NOTE | 2024-09-06 13:18 | DISCHARGE SUMMARY ---
Discharge Summary Providers to CC ~ Discharge Summary Admission Diagnosis: Acute hypoxic respiratory failure Hospital Course DATE OF ADMISSION: 09/02/24 DATE OF DISCHARGE: 09/06/24 Discharge Diagnosis\\Comment: Acute hypoxic respiratory failure Bilateral pleural effusion Pneumothorax Metastatic esophageal CA, on chemo currently (Dr. Teague) Normocytic anemia COPD without exacerbation Peripheral neuropathy G-tube status Severe protein calorie malnutrition Operations\\Procedures: Chest tube Consultants: Surgeon Seferino Jeter Complications: None Condition on DC: Stable for transfer Discharge Summary: History of Present Illness From H&P: "This 74-year-old male with a medical history of esophageal cancer currently on chemotherapy, completed radiation; dysphagia-s/p about G-tube placement on 05/29/2024, bilateral thoracentesis in April 2024, tobacco use disorder, severe malnourishment presented to the ER with a chief complaint of worsening shortness of breaths in the last one week to 10 days. Even finds it difficult to talk. Complains of occasional sharp chest pain that lasts for about a minute and is not associated with any exacerbating or relieving factors. Denies any nausea or vomiting. States that he has been having diarrhea since the G-tube placement and using drinks to treat his malnutrition. He also complains of cough which gets worse with nebulization and strongly is denying nebulization. During his previous admission, about 1050 mL of pleural fluid re moved from the right side on 05/24/24. He again got 1100 cc of right pleural fluid drained and 900 cc of left pleural fluid removed on 06/02/2024. He was also treated for pneumonia with Zosyn during that admission. Now, he denies any fever or chills but has difficulty even talking and so presented to the ER. Denies using any oxygen at home. Denies any pedal edema. He feels so weak and shortness of breath to walk. Today, about 1200 cc pleural fluid drained from the right side by the ER physician. Developed small right apical pneumothorax and so chest tube was placed with the ER physician. Remains hemodynamically stable. Stated that a biopsy was never done to diagnose him with esophageal cancer. PET scan was done and he was told that the cancer has spread to lungs, lymph nodes and abdomen. He gets chemotherapy infusion once in two weeks and 's office and the last dose was about one and half weeks back. Denies taking any oral liquids or solid food." Hospital Course Diagnostic findings were notable for chest CT revealing metastatic cancer, moderate to large bilateral pleural effusions. Patient underwent thoracentesis in ED with approximately 1200 cc pleural fluid removed however patient developed pneumothorax in which chest tube was placed for by Dr. Phoenix. Given his history of esophageal cancer with metastasis, effusion likely secondary to malignancy. Chest tube output was in significant and discontinued on 09/05/24. Patient did not experience further complications throughout the entire hospital stay. Patient was seen and examined on the day of discharge. On day of discharge, vss and labs unremarkable. All labs, diagnostic workups, discharge plan discussed with patient in details during visit before discharge. All questions and concerns answered to the best of my professional knowledge. Patient is to be discharged to rehab for continued management. I spoke to his oncologist Dr. Teague who is agreeable to hold chemotherapy for another 3 weeks. Physical Exam General: Generalized weakness, A&Ox 3, NAD HEENT: Normocephalic, PERRLA Neck: Supple, trachea midline, no JVD Chest: Diminished right lung, right chest tube in place Cardiovascular: RRR, S1&S2 GI: Soft and nontender Extremities: No cyanosis/clubbing/or edema SENIOR ANIMATOR: CN II-XII intact, no focal deficits Musculoskeletal: No paraspinal muscle tenderness, no muscle spasm Skin: Warm and intact *Problems/Diagnosis: (1) Bilateral pleural effusion Status: Acute Total Time Spent on D/C: > 30 Minutes Date of Service: Sep 06, 2024 Billing Provider: JOSE CABALLERO Common Visit Codes: [id number] DISCH DAY >30min JOSE CABALLERO Sep 06, 2024 13:18
== END 2024-09-06 12:45 | DRG 374 ==
LOC: ER 22:40 → ED HOLD 09-02 02:20 → PCU 3S 09-02 07:54
PROVIDERS: ADMIT Internal Medicine Critical Care Medicine; ATTEND Internal Medicine
PROC: 0W9930Z Drainage of Right Pleural Cavity with Drainage Device, Percutaneous Approach (ICD-10-PCS; principal; 2024-09-02)
DX: C15.9 Malignant neoplasm of esophagus, unspecified (principal); D61.810 Antineoplastic chemotherapy induced pancytopenia; J96.01 Acute respiratory failure with hypoxia; E43 Unspecified severe protein-calorie malnutrition; J91.0 Malignant pleural effusion; J93.83 Other pneumothorax; Z68.1 Body mass index [BMI] 19.9 or less, adult; J90 Pleural effusion, not elsewhere classified; D61.818 Other pancytopenia; C79.9 Secondary malignant neoplasm of unspecified site; T45.1X5A Adverse effect of antineoplastic and immunosuppressive drugs, initial encounter; Z66 Do not resuscitate; J44.9 Chronic obstructive pulmonary disease, unspecified; Z92.3 Personal history of irradiation; G62.9 Polyneuropathy, unspecified; Z87.891 Personal history of nicotine dependence; Z79.899 Other long term (current) drug therapy
CPT/HCPCS: 32551; 36415; 71045; 71250; 74018; 80053; 80061; 81003; 82948; 83036; 83605; 83735; 84100; 84134; 85025; 85610; 85730; 86704; 86705; 87040; 87081; 87340; 93005; 97162; 97530; 99285; A4615; A6213; A6258; A6449; A6590; C1729; G0378; J1171; J2405; J7042